=== PATIENT | female | born 1990 | race Caucasian/White ===

== ENCOUNTER 2022-10-08 11:00 | Outpatient (REF) | payer OTHER, SELFPAY ==
[2022-10-12 18:07] LABS: Age Gdln ACOG Testing Note (.); HPV Aptima Negative (Negative); IGP, Aptima HPV, rfx 16/18,45 Note (.)
== END 2022-10-08 11:01 | disposition home or self-care (01) ==
LOC: LAB 11:00
PROVIDERS: Visit Provider Physician Assistant
DX: Z01.419 Encounter for gynecological examination (general) (routine) without abnormal findings (principal)
CPT/HCPCS: 87624; G0145

== ENCOUNTER 2022-10-17 20:44 | Outpatient (REF) | payer OTHER, SELFPAY | END 2022-10-17 20:45 | disposition home or self-care (01) | LOC: LAB 20:44 | PROVIDERS: Visit Provider Obstetrics & Gynecology | DX: N94.9 Unspecified condition associated with female genital organs and menstrual cycle (principal) | CPT/HCPCS: 87070; 87150; 87186 ==

== ENCOUNTER 2022-12-14 07:56 | Outpatient (OUT) | payer OTHER, SELFPAY | END 2022-12-14 07:57 | disposition home or self-care (01) | LOC: PST 07:58 | PROVIDERS: Visit Provider Obstetrics & Gynecology | DX: Z01.818 Encounter for other preprocedural examination (principal); N80.9 Endometriosis, unspecified; R10.2 Pelvic and perineal pain ==

== ENCOUNTER 2022-12-28 07:32 | Day surgery (SDC) | payer OTHER, SELFPAY ==
[2022-12-14 08:29] VITALS: BP 101/68; PULSE 65; RESP 16; TEMP 36.4; O2SAT 98; BMI 30.3
[2022-12-28] VITALS (11 sets, daily range): BP systolic 92–115; BP diastolic 60–88; PULSE 55–97; RESP 10–20; TEMP 35.8–36.1; O2SAT 97–100; BMI 27.9
[2022-12-28 07:44] LABS: Basophils Percent Auto 0.5 % (0.2-2.0); Eosinophils Absolute Auto 0.1 10^3/uL (0.0-0.7); Eosinophils Percent Auto 1.1 % (0.9-7.0); Hematocrit 43.2 % (36.0-48.0); Hemoglobin 14.6 g/dL (12.0-16.0); Immature Granulocytes Abs Auto 0.04 10^3/uL (0.00-0.03); Immature Granulocytes Pct Auto 0.5 % (0.0-0.5); Lymphocytes Absolute Auto 2.5 10^3/uL (1.2-3.8); Mean Corpuscular HGB Conc 33.8 g/dL (29.9-35.2); Mean Corpuscular Hemoglobin 29.7 pg (26.7-34.0); Mean Corpuscular Volume 87.8 fL (81.0-99.0); Mean Platelet Volume 9.7 fL (9.5-13.5); Monocytes Absolute Auto 0.6 10^3/uL (0.3-0.8); Monocytes Percent Auto 6.9 % (1.7-12.0); Platelet Count 313 10^3/uL (150-450); Red Blood Count 4.92 10^6/uL (4.20-5.40); Red Cell Distribution Width 12.7 % (11.0-15.0); White Blood Count 8.2 10^3/uL (4.0-11.0)
[2022-12-28] MEDS: LACTATED RINGER'S SOLUTION 1,000 ML 50 ML IV (07:59)
[2022-12-28] MEDS: SCOPOLAMINE 1 EACH PATCH.TD.3 1 PATCH TD (08:10)
[2022-12-28] MEDS: LACTATED RINGER'S SOLUTION 1,000 ML 75 ML IV (09:30)
--- NOTE | 2022-12-28 09:41 | PM.ONB ---
Brief Operative Note Date of procedure: 12/28/22 Pre-op diagnosis: pelvic pain Post-op diagnosis: same as pre-op Procedure: NAME OF PROCEDURE: [diagnostic laparoscopy with lysis of omental adhesions to the anterior abdominal wall ] PROCEDURE: The patient was taken back to the Operating Room where she was placed in dorsal lithotomy position after given general anesthesia. The patient was prepped and draped in normal sterile fashion. A sponge stick was placed into the patient's vagina. Attention was turned to the patient's abdomen, where a small umbilical incision was made. The fascia was tented using Scarlett clamps and the fascia was entered sharply. Confirmation of intraabdominal placement of the 10 mm port was confirmed under direct visualization using a laparoscope. The patient's abdomen was then insufflated using CO2 gas with approximately 4 liters. A second port was placed left laterally, this was done under direct visualization with a 5 mm port. Survey of the patient's abdomen demonstrated normal liver and gallbladder. Survey of the patient's pelvic anatomy demonstrated normal appearing rt and lt ovary and absent uterus. extensive adhesions of bowel to the anterior abdominal wall and vaginal cuff was noted, along with lt ovary adhered to pelvic side wall. No endometrial implants could be noted, no evidence of any pelvic disease was seen, normal appearing pelvic cavity. All instruments were removed from the patient's abdomen. The patient's abdomen was deinsufflated of CO2 gas. The patient tolerated the procedure well. Sponge stick was removed from the patient's vagina. The patient's infraumbilical fascia was closed using #0 Vicryl on a GI needle. The patient's skin was closed laterally and infraumbilically using 4-0 Vicryl. The patient tolerated the procedure well. Sponge, lap and needle counts were correct x 2. The patient was taken to Recovery Room in stable condition.Clips from prior surgery noted adhered to bladder, the clips were grasped and gently removed Anesthesia: BRANDI Surgeon: Prem Cardenas Moving Picture Producer: Geeta Rosario Estimated blood loss (mL): 5 Pathology: none sent Condition: stable Disposition: PACU
[2022-12-28] MEDS: HYDROMORPHONE HCL 0.5 MG/0.5 ML SYRINGE 0.400000000000000022 MG IV ×2 (09:55→10:03)
--- NOTE | 2022-12-28 10:15 | PC.NURSE ---
Medicated for pain as ordered; peripad dry
== END 2022-12-28 11:45 | disposition home or self-care (01) ==
PROVIDERS: Visit Provider Obstetrics & Gynecology
PROC: (CPT 840; principal; 2022-12-28 08:55)
DX: N80.9 Endometriosis, unspecified (principal); R10.2 Pelvic and perineal pain; N73.6 Female pelvic peritoneal adhesions (postinfective); F17.210 Nicotine dependence, cigarettes, uncomplicated; Z90.710 Acquired absence of both cervix and uterus; Z98.51 Tubal ligation status; N89.8 Other specified noninflammatory disorders of vagina
CPT/HCPCS: 49320; 36415; 85025; J1094; J1170; J2704

== ENCOUNTER 2023-05-11 19:45 | Emergency (ER) | payer OTHER, SELFPAY ==
[2023-05-11 19:49] VITALS: BP 113/82; PULSE 94; RESP 18; TEMP 36.8; O2SAT 98; BMI 32.6
[2023-05-11] MEDS: DEXAMETHASONE SOD PHOS 10 MG/ML VIAL PO (20:04)
--- NOTE | 2023-05-11 20:04 | ED.DENTAL1 ---
HPI - Dental/Oral General Chief complaint: Dental/Oral Stated complaint: sore throat, ear pain Time Seen by Provider: 05/11/23 19:52 Source: patient Mode of arrival: walk-in Limitations: no limitations History of Present Illness HPI Narrative: 32-year-old female presents here with chief complaint of loss of voice cough congestion. Patient states she's had the symptoms for approximately 4-5 days. She was seen at another facility and diagnosed with pharyngitis. Patient does not appear toxic. She is afebrile. Posterior oropharynx shows no exudates and uvula is midline Related Data Home Medications Medication Instructions Recorded Confirmed albuterol sulfate 90 mcg/actuation 2 puff inhalation Q6H PRN 05/11/23 05/11/23 aerosol inhaler shortness of breath or wheezing hydroxyzine pamoate 25 mg capsule 25 mg PO Q8H 05/11/23 05/11/23 sertraline 50 mg tablet 50 mg PO Q24H 05/11/23 05/11/23 Previous Rx's Medication Instructions Recorded hydrocodone 5 mg-acetaminophen 325 1 tab PO Q4H PRN pain 4 days #16 12/28/22 mg tablet tabs ibuprofen 800 mg tablet 800 mg PO Q8H PRN pain 14 days #40 12/28/22 tabs Allergies Allergy/AdvReac Type Severity Reaction Status Date / Time Penicillins AdvReac Mild yeast Verified 05/11/23 19:54 infection Review of Systems ROS Narrative All Systems are negative except as noted/marked. PFSH PFSH Medical History (Updated 05/11/23 @ 20:20 by Elizabeth Tenorio) Anxiety ?F41.9 - Anxiety disorder, unspecified (ICD-10) COVID-19 ?U07.1 - COVID-19 (ICD-10) Migraine ?G43.909 - Migraine, unspecified, not intractable, without status migrainosus (ICD-10) Pelvic pain ?R10.2 - Pelvic and perineal pain (ICD-10) Postoperative nausea and vomiting ?R11.2 - Nausea with vomiting, unspecified (ICD-10) ?Z98.890 - Other specified postprocedural states (ICD-10) Delayed recovery from anesthesia Endometriosis ?N80.9 - Endometriosis, unspecified (ICD-10) Poor dentition ?K08.9 - Disorder of teeth and supporting structures, unspecified (ICD-10) Dental caries ?K02.9 - Dental caries, unspecified (ICD-10) Surgical History (Updated 12/14/22 @ 08:21 by Leny Cartwright NP) History of tubal ligation ?Z98.51 - Tubal ligation status (ICD-10) History of laparoscopy ?Z98.890 - Other specified postprocedural states (ICD-10) History of endometrial ablation ?Z98.890 - Other specified postprocedural states (ICD-10) History of hysterectomy ?Z90.710 - Acquired absence of both cervix and uterus (ICD-10) Family History (Updated 12/14/22 @ 08:21 by Leny Cartwright NP) Other Delayed recovery from anesthesia Family history of diabetes mellitus Family history of gastric cancer Family history of heart disease Family history of prostate cancer Family history of stroke Family history of throat cancer Social History (Updated 12/14/22 @ 08:17 by Leny Cartwright NP) Within the past year, how often did you have a drink containing alcohol: never Score interpretation: A score less than 3 is consistent with normal alcohol consumption. Smoking status: Current every day smoker What tobacco products do you use: cigarettes Cigarettes per day: 10 Years smoked: 11 Smoking pack-years: 5.50 Non-prescribed substance use: denies use Highest level of school completed/degree received: some college, no degree Exam Narrative Exam Narrative: Nurses note and vital signs reviewed and patient is not hypoxic. General: The patient appears well and in no apparent distress. Patient is resting comfortably on cart. Skin: Warm, dry, no pallor noted. There is no rash noted. Head: Normocephalic, atraumatic Eye: Normal conjunctiva, no drainage, EOMI. PERRL Ears, Nose, Mouth, and Throat: oral mucosa is moist. Nares patent. Mouth without vesicles. Ear canals patent. Tm's without Erythema Cardiovascular: Regular Rate and Rhythm Respiratory: Diminished expiratory wheezing posterior lower lobe, Patient is in no distress, no accessory muscle use, l Back: non-tender, no CVA tenderness bilaterally to percussion. GI: Normal bowel sounds, no tenderness to palpation, no masses appreciated. No rebound, guarding, or rigidity noted. Musculoskeletal: The patient has no evidence of calf tenderness, no pitting edema, symmetrical pulses noted bilaterally Neurological: A&O x4, normal speech Psychiatric: Cooperative Constitutional Vital Signs, click to edit/add: Last Vital Signs Temp 98.3 F 05/11/23 19:49 Pulse 90 05/11/23 20:12 Resp 16 05/11/23 20:12 BP 113/82 05/11/23 19:49 Pulse Ox 95 05/11/23 20:12 O2 Del Method Room Air 05/11/23 20:12 Course Vital Signs Vital signs: Vital Signs Temperature 98.3 F 05/11/23 19:49 Pulse Rate 94 H 05/11/23 19:49 Respiratory Rate 18 05/11/23 19:49 Blood Pressure 113/82 05/11/23 19:49 Pulse Oximetry 98 05/11/23 19:49 Oxygen Delivery Method Room Air 05/11/23 19:49 Temperature 98.3 F 05/11/23 19:49 Pulse Rate 90 05/11/23 20:12 Respiratory Rate 16 05/11/23 20:12 Blood Pressure 113/82 05/11/23 19:49 Pulse Oximetry 95 05/11/23 20:12 Oxygen Delivery Method Room Air 05/11/23 20:12 MDM - Dental/Oral MDM Narrative Medical decision making narrative: 32-year-old female presents her chief complaint of loss of voice. Rapid strep was obtained and negative. Patient was medicated with Decadron and DuoNeb breathing treatment she had some scattered expiratory wheezing. Lung sounds are now clear she does have an OB her inhaler home. Patient told to continue with saltwater gargles and throat lozenges for laryngitis. Patient agrees with plan of care. She's not toxic. Uvula midline no sign of peritonsillar abscess. Medical Records Attestation: I reviewed the patient's medical records. Lab Data Attestation: I reviewed the patient's lab results. Labs: Lab Results 05/11/23 Range/Units 19:51 Streptococcus Screen Negative Discharge Plan Discharge Chief Complaint: Dental/Oral Clinical Impression: Laryngitis Patient Disposition: Home, Self-Care Time of Disposition Decision: 20:18 Condition: Good Prescriptions / Home Meds: No Action ibuprofen 800 mg tablet 800 mg PO Q8H PRN (Reason: pain) 14 Days Qty: 40 0RF hydrocodone-acetaminophen 5-325 mg tablet 1 tab PO Q4H PRN (Reason: pain) 4 Days Qty: 16 0RF albuterol sulfate 90 mcg/actuation HFA aerosol inhaler 2 puff INHALATION Q6H PRN (Reason: shortness of breath or wheezing) hydroxyzine pamoate 25 mg capsule 25 mg PO Q8H sertraline 50 mg tablet 50 mg PO Q24H Instructions: Pharyngitis (ED) Additional Instructions: your exam is consistent with Laryngitis. This is a viral illness. Saltwater gargles throat lozenges to often help. No antibiotics are necessary at this time. Follow-up with primary care physician Stand Alone Forms: Portal Instructions Referrals: Physician,Non-Staff, [Primary Care Provider] - 1 week Discharge Date/Time: 05/11/23 20:28
[2023-05-11 20:09] VITALS: RESP 18; O2SAT 98
[2023-05-11] MEDS: IPRATROPIUM/ALBUTEROL SULFATE 3 ML AMPUL.NEB IH (20:09)
[2023-05-11 20:12] VITALS: PULSE 90; RESP 16; O2SAT 95
[2023-05-11 20:15] LABS: Internal Control Within Normal Limits; Strep A Antigen Screen Negative
== END 2023-05-11 20:28 | disposition home or self-care (01) ==
PROVIDERS: Physician Assistant; Emergency Provider Internal Medicine
DX: J04.0 Acute laryngitis (principal); F17.210 Nicotine dependence, cigarettes, uncomplicated; F41.9 Anxiety disorder, unspecified; Z86.16 Personal history of COVID-19; Z98.890 Other specified postprocedural states; Z79.899 Other long term (current) drug therapy; Z90.710 Acquired absence of both cervix and uterus
CPT/HCPCS: 87070; 87880; 94640; 99283; J1100

== ENCOUNTER 2024-02-03 20:40 | Outpatient (REF) | payer OTHER, SELFPAY ==
--- OUTSIDE RECORDS SUMMARY | 2024-02-03 20:43 | XMS_ITS | CCD ---
Author Organization [facility] Care Team Providers Care Boiler/Chiller Operator Name Role Phone FACUNDO, NADIYA Admitting Unavailable FACUNDO, NADIYA Attending Unavailable FACUNDO, NADIYA Consulting Unavailable FACUNDO, NADIYA Admitting Unavailable FACUNDO, NADIYA Attending Unavailable FACUNDO, NADIYA Consulting Unavailable JAMES BOSTON Attending Unavailable Valentino, Servando Attending Unavailab le Valentino, Servando Admitting Unavailab le NO PCP, NO PCP Primary Care Unavailable ROLAND HARRIS Attending Unavailable NO PCP, NO PCP Primary Care Unavailable LANDON, SHAYY Attending Unavailable LANDON, SHAYY Referring Unavailable NO PCP, NO PCP Primary Care Unavailable LANDON, SHAYY Attending Unavailable LANDON, SHAYY Referring Unavailable NO PCP, NO PCP Primary Care Unavailable NO PCP, NO PCP Primary Care Unavailable ROLAND HARRIS Attending Unavailable NO PCP, NO PCP Primary Care Unavailable ROLAND HARRIS Attending Unavailable NO PCP, NO PCP Primary Care Unavailable Problems Active Problems Problem Classification Problem Date Documented Date Episodic/Chronic Disorders of teeth and jaw (2 sources) Other specified disorders of teeth and supporting structures; Translations: [Toothache] Onset: 12-16-2023 Episodic Immunizations and screening for infectious disease (1 source) Encounter for screening for human papillomavirus (HPV); Translations: [ENC SCREENING HUMAN PAPILLOMAVIRUS] Onset: 12-30-2019 Episodic Other nervous system disorders (1 source) Other chronic pain; Translations: [Other chronic pain] Onset: 08-12-2023 Chronic Other screening for suspected conditions (not mental disorders or infectious disease) (4 sources) Encounter for screening for malignant neoplasm of cervix; Translations: [ENC SCREENING MALIG NEOPLASM CERV] Onset: 12-29-2019 Episodic Unclassified (1 source) Shoulder Pain, Numbness Onset: 08-12-2023 Unclassified (1 source) Earache Onset: 05-07-2023 Past or Other Problems Problem Classification Problem Date Documented Da te Episodic/Chronic Acute bronchitis (1 source) Acute bronchitis, unspecified; Translations: [Acute bronchitis, unspecified] Onset: 05-07-2023 Episodic Nonmalignant breast conditions (4 sources) Nipple discharge; Translations: [NIPPLE DISCHARGE] Onset: 06-11-2019 Episodic Other non-traumatic joint disorders (1 source) Pain in right shoulder; Translations: [Pain in right shoulder] Onset: 08-12-2023 Episodic Other non-traumatic joint disorders (1 source) Shoulder pain Onset: 08-12-2023 Episodic Other upper respiratory disease (1 source) Pain in throat Onset: 05-07-2023 Episodic Spondylosis; intervertebral disc disorders; other back problems (2 sources) Radiculopathy, cervical region; Translations: [Neck pain] Onset: 06-05-2023 Episodic Results Test Name Value Interpretation Reference Range Facil ity SARS/FLU A+B/RSV by NAAT/Mol ecularon 05-07-2023 SARS/FLU A+B/RSV by NAAT/Molecular FLU A PCR Negative (qualifier value) FLU B PCR Negative (qualifier value) RSV by PCR Negative (qualifier value) SARS CoV 2 Not detected (qualifier value) NOTE The Xpert Xpress SARS-CoV-2/Flu/RSV Plus test is a rapid, multiplexed real-time RT-PCR test intended for the simultaneous qualitative detection and differentiation of SARS-CoV-2, influenza A, influenza B and respiratory syncytial virus (RSV) viral RNA from individuals suspected of respiratory viral infection consistent with COVID-19 by their healthcare provider. This test has not been validated in asymptomatic patients. The Xpert Xpress SARS-CoV-2 test is intended for use by qualified and trained operators who are performing tests using either [employer] or [employer] systems and is limited to laboratories that meet the CLIA requirements to perform high and moderate complexity tests. The Xpert Xpress SARS-CoV-2/Flu/RSV Plus is only for use under the Food and Drug Administration's Emergency Use Authorization. Results are for the simultaneous detection and differentiation of SARS-CoV-2, influenza A, influenza B and RSV nucleic acids in clinical specimens. SARS-CoV-2, influenza A, influenza B and RSV RNA identified by this test are generally detectable in upper respiratory samples during the acute phase of infection. Positive results are indicative of the presence of the identified virus, but do not rule out bacterial infection or co-infection with other pathogens not detected by this test. Clinical correlation with patient history and other diagnostic information is necessary to determine patient infection status. The agent detected may not be the definite cause of disease. Negative results do not preclude SARS-CoV-2, influenza A, influenza B and RSV infection and should not be used as the sole basis for treatment or other patient management decisions. Negative results must be combined with clinical observations, patient history and epidemiological information. An Invalid result may occur with specimen-associated inhibition unable to be resolved with specimen repeat. Fact Sheet for Healthcare Providers: https://www.fda.gov/me nallely/206018/download Fact Sheet for Patients: https://www.fda.gov/tn nallely/136552/download Normal [facility] Comment on above: Performed By: #### C OVFLR #### [facility] ([id number]) [address] [place] [address] PAP ACOG PANEL 2: 21 to 29on 01-01-2020 Age Gdln ACOG Testing 21- [facility] Comment on above: Performed By: #### [id number] #### [facility] [address] [place] [address] Maisha Wild DIAGNOSIS: Comment [facility] Comment on above: Result Comment: NEGA TIVE FOR INTRAEPITHELIAL LESION OR MALIGNANCY. Performed By: #### [id number] #### [facility] [address] [place] [address] Maisha Wild Methodology: Comment [facility] Comment on above: Result Comment: This liquid based SurePath(R) pap test was screened with the assistance of an image guided system. Performed By: #### [id number] #### [facility] [address] [place] [address] Maisha Wild Note: Comment [facility] Comment on above: Result Comment: The Pap smear is a screening test designed to aid in the detection of premalignant and malignant conditions of the uterine cervix. It is not a diagnostic procedure and should not be used as the sole means of detecting cervical cancer. Both false-positive and false-negative reports do occur. . Performed By: #### [id number] #### [facility] [address] [place] [address] Maisha Torri Performed by: Comment Normal [facility] Comment on above: Result Comment: Kiana Parker, [place] (ASCP) Performed By: #### [id number] #### [facility] [address] [place] [address] Maisha Torri Reflex Criteria: Comment Normal [facility] Comment on above: Result Comment: The HPV DNA reflex criteria were not met with this specimen result therefore, no HPV testing was performed. . Performed By: #### [id number] #### [facility] [address] [place] [address] Maisha Torri Specimen adequacy: Comment Normal [facility] Comment on above: Result Comment: Sati sfactory for evaluation. No endocervical component is identified. Performed By: #### [id number] #### [facility] [address] [place] [address] Maisha Torri . . Normal [facility] Comment on above: Performed By: #### [id number] #### [facility] [address] [place] [address] Maisha Torri CULTURE WOUNDon 06-11-2019 CULTURE WOUND Culture Observations : Normal skin kenia. Culture Observations: No growth of anaerobes at 72 hours. Normal [facility] Comment on above: Performed By: #### W OUNDCX #### [facility] [address] [place] [address] Maisha Torri GRAM STAINon 06-11-2019 Microscopic observation Gram stain Nom (Unsp spec) LEFT NIPPLE [facility] Comment on above: Performed By: #### G STAIN #### [facility] [address] [place] [address] Maisha Torri Microscopic observation Gram stain Nom (Unsp spec) [facility] Comment on above: Performed By: #### G STAIN #### [facility] [address], [place] [address] Maisha Wild Microscopic observation Gram stain Nom (Unsp spec) NO ORGANISMS OBSERVED Normal [facility] Comment on above: Performed By: #### G STAIN #### [facility] [address] [place], [place] [address] Maisha Wild WBC (Bld) [#/Vol] NONE SEEN Normal [facility] Comment on above: Performed By: #### G STAIN #### [facility] [address] [place], [place] [address] Maisha Wild Encounters Encounter Date Encounter Type Care Provider Facility Start: 12-16-2023 End: 12-16-2023 Emergency department patient visit NO PCP NO PCP [facility] Start: 10-13-2023 End: 10-14-2023 Emergency department patient visit [facility] Start: 10-13-2023 End: 10-14-2023 Emergency department patient visit [facility] Start: 08-12-2023 End: 08-12-2023 Emergency department patient visit NO PCP NO PCP [facility] Start: 07-01-2023 End: 07-01-2023 ambulatory JAMES BOSTON Not Available Start: 06-05-2023 End: 06-05-2023 Emergency department patient visit NO PCP NO PCP [facility] Start: 05-31-2023 ambulatory Servando Gilman acility:[facility] Start: 05-07-2023 End: 05-07-2023 Emergency department patient visit NO PCP NO PCP [facility] Start: 12-29-2019 End: 12-29-2019 Patient encounter procedure NADIYA FACUNDO Facility:[facility] Start: 06-11-2019 End: 06-11-2019 Patient encounter procedure NADIYA FACUNDO Facility:[facility] Payers Date Payer Category Payer Self-pay 1990 Unknown [id number] 2.16.84 [id number] 1990 Unknown [id number] 2.16.84 [id number] 1990 Unknown [id number] 2.16.84 [id number] 1990 Unknown [id number] 2.16.8 [id number] 1990 Unknown [id number] 2.16.8 [id number] 1990 Unknown [id number] 2.16.8 [id number] 1990 Unknown [id number] 2.16.8 [id number] 1990 Unknown [id number] 2.16.8 [id number] 1990 Unknown [id number] 2.16.8 [id number] 1990 Unknown [id number] 2.16.84 [id number] 1959 Unknown [id number] Clinical Note 10-13-2023 Note Date & Type Note Facility 10-13-2023 Note XR SHOULDER RT MIN 2 VWS Procedure: Right shoulder radiographs performed Number of views:4 History:Shoulder pain Comparison:None Findings: There is no fracture, dislocation, or destructive lesion. Joint space is well preserved. Impression: 1. No acute findings. Finalized by Jesus Galindo MD on 10/13/2023 2:38 PM [facility] Summary Purpose Family History No Family History Records FoundNo Family History Records FoundNo Family History Records FoundNo Family History Records Found Advance Directives No Advanced Directives Records FoundNo Advanced Directives Records FoundNo Advanced Directives Records FoundNo Advanced Directives Records Found Additional Source Comments INFORMATION SOURCE (unrecogn ized section and content) DATE CREATED AUTHOR 01/01/2020 [facility] DATE CREATED AUTHOR AUTHOR'S ORGANIZ ATION 07/01/2023 [facility] EPIC DATE CREATED AUTHOR AUTHOR'S ORGANIZ ATION 07/30/2023 [facility] DATE CREATED AUTHOR AUTHOR'S PAT JOHN 12/17/2023 [facility] FOR RECORDS PERTAINING TO PATIENTS WHO ARE OR HAVE BEEN ENROLLED IN A CHEMICAL DEPENDENCY/SUBSTANCEABUSE PROGRAM, SOME INFORMATION MAY BE OMITTED. This clinical summary was aggregated from multiple sources. Caution should be exercised in using it in the provision of clinical care. This summary normalizes information from multiple sources, and as a consequence, information in this document may materially change the coding, format and clinical context of patient data. In addition, data may be omitted in some cases. CLINICAL DECISIONS SHOULD BE BASED ON THE PRIMARY CLINICAL RECORDS. [facility] [employer] [facility]. provides no warranty or guarantee of the accuracy or completeness of information in this document.
== END 2024-02-03 20:41 | disposition home or self-care (01) ==
LOC: LAB 20:40
PROVIDERS: Visit Provider Physician Assistant
DX: Z01.419 Encounter for gynecological examination (general) (routine) without abnormal findings (principal)
CPT/HCPCS: 87624; 88175

== ENCOUNTER 2024-12-28 21:15 | Outpatient (REF) | payer OTHER, SELFPAY ==
--- OUTSIDE RECORDS SUMMARY | 2024-12-28 21:20 | XMS_ITS | CCD ---
Author Organization [facility] Care Team Providers Care Paper Hanger Name Role Phone EDWIN, NADIYA Admitting Unavailable EDWIN, NADIYA Attending Unavailable EDWIN, NADIYA Consulting Unavailable EDWIN, NADIYA Admitting Unavailable EDWIN, NADIYA Attending Unavailable EDWIN, NADIYA Consulting Unavailable Elizabeth Bates Unavailable Servando Avelar Attending Unavailab le Servando Avelar Admitting Unavailab le REDDY, JM Referring Unavailable REDDY, JM Primary Care Unavailable Reddy TRAVERSE ROD ASSEMBLER-CAR DELIVERER, Jm Primary Care Provider Elizabeth Bates Unavailable Edwin DO, Nadiya Unavailable Reddy TRAVERSE ROD ASSEMBLER-CAR DELIVERER, Jm Primary Care Provider REDDY, JM Attending Unavailable REDDY, JM Primary Care Unavailable REDDY, JM Attending Unavailable REDDY, JM Referring Unavailable REDDY, JM Primary Care Unavailable REDDY, JM Attending Unavailable REDDY, JM Referring Unavailable REDDY, JM Primary Care Unavailable REDDY, JM Attending Unavailable REDDY, JM Referring Unavailable REDDY, JM Primary Care Unavailable EDWIN, NADIYA Attending Unavailable EDWIN, NADIYA Attending Unavailable ELIZABETH BOSTON Attending Unavailable ELIZABETH BOSTON Attending Unavailable EDWIN, NADIYA Attending Unavailable NO PCP, NO PCP Primary Care Unavailable ROLAND HARRIS Attending Unavailable REDDY, JM Primary Care Unavailable REDDY, JM Primary Care Unavailable REDDY, JM Referring Unavailable REDDY, JM Primary Care Unavailable EDWIN, NADIYA R Referring Unavailable [facility] Primary Care Unavailable EDWIN, NADIYA R Referring Unavailable [facility] Primary Care Unavailable [facility], JM Referring Unavailable [facility] Primary Care Unavailable REDDY, JM Referring Unavailable [facility] Primary Care Unavailable ELIZABETH BOSTON Referring Unavailable [facility] Primary Care Unavailable REDDY, JM Referring Unavailable [facility] Primary Care Unavailable Allergies Allergy Classification Reported Allergen(s) Allergy Type Date of Onset Reaction(s) Facility (17 sources) Penicillin G Drug Allergy 10-08-2022 Other [facility] Work Phone: Medications Current Medications Medication Drug Class(es) Dates Sig (Normalized) Sig (Original) [id number] actuat albuterol 0.09 mg/actuat metered dose inhaler (20 sources) beta2-Adrenergic Agonist Start: 10-07-2024 End: 12-21-2024 take 2 puff(s) by inhalation every six hours as needed for wheezing albuterol (PROVENTIL HFA;VENTOLIN HFA) 90 mcg/actuation inhaler Indications: History of COVID-19 , Bronchitis Inhale 2 puffs every 6 (six) hours as needed for wheezing or shortness of breath. 18 g 2 12/21/2024 Active Start: 05-07-2023 take 2 puff(s) by mo uth every six hours as needed for wheezing albuterol HFA 90 mcg/act inhaler INHALE 2 PUFFS BY MOUTH INTO THE LUNGS EVERY 6 HOURS NEEDED FOR WHEEZING 05/07/2023 Active Start: 05-07-2023 End: 10-07-2024 take 2 puff(s) by inhalation every six hours as needed for wheezing albuterol (PROVENTIL HFA;VENTOLIN HFA) 90 mcg/actuation inhaler Inhale 2 puffs every 6 (six) hours as needed for wheezing. 05/07/2023 10/07/2024 Discontinued (Reorder) amoxicillin 875 mg / clavulanate 125 mg oral tablet (4 sources) Penicillin-class Antibacterial Start: 10-26-2024 take 1 tablet by mouth every twelve hours amoxicillin-clavulanate (Augmentin) 875-125 MG tablet TAKE 1 TABLET BY MOUTH EVERY 12 HOURS UNTIL GONE 10/26/2024 Active Start: 06-17-2024 End: 06-27-2024 take 1 tablet by mouth once in the morning amoxicillin-pot clavulanate (AUGMENTIN) 875-125 mg per tablet Take 1 tablet by mouth in the morning and 1 tablet before bedtime. Do all this for 10 days. 20 tablet 06/17/2024 06/27/2024 Active celecoxib 100 mg oral capsule (19 sources) Nonsteroidal Anti-inflammatory Drug Start: 07-06-2024 End: 10-07-2024 take 1 capsule by mouth in the morning celecoxib (CeleBREX) 100 MG capsule Take 100 mg by mouth in the morning and 100 mg in the evening. 07/06/2024 Active cyclobenzaprine hydrochloride 10 mg oral tablet (20 sources) Muscle Relaxant Start: 10-07-2024 take 1 tablet by mouth once daily as needed for muscle spasms cyclobenzaprine (FLEXERIL) 10 mg tablet Indications: Myalgia Take 1 tablet (10 mg total) by mouth nightly as needed for muscle spasms. 30 tablet 2 10/07/2024 Active Start: 07-06-2024 End: 10-07-2024 cyclobenzaprine (Flexeril) 5 MG tablet 07/06/2024 Active Start: 06-05-2023 take 1 tablet by bernardo th twice daily as needed cyclobenzaprine (Flexeril) 10 MG tablet Take 10 mg by mouth 2 (two) times a day as needed 06/05/2023 Active doxycycline hyclate 100 mg oral capsule (2 sources) Tetracycline-class Drug Start: 10-28-2024 End: 11-27-2024 doxycycline (Vibramycin) 100 MG capsule Indications: Hormone disorder , Dyspareunia in female Take 1 capsule (100 mg) by mouth in the morning and 1 capsule (100 mg) before bedtime. Take with at least 8 ounces (large glass) of water, do not lie down for 30 minutes after. 60 capsule 10/28/2024 11/27/2024 Active estradiol 1 mg oral tablet (20 sources) Estrogen Start: 10-28-2024 End: 10-28-2025 take 1 tablet by mouth once daily estradiol (Estrace) 1 MG tablet Indications: Hormone disorder Take 1 tablet (1 mg) by mouth Daily Take 1 tablet by mouth for 30 days 30 tablet 11 10/28/2024 10/28/2025 Active Start: 06-09-2024 End: 06-09-2025 take 1 tablet by mouth in the morning estradioL (ESTRACE) 0.5 mg tablet Take 1 tablet (0.5 mg total) by mouth in the morning. 06/09/2024 06/09/2025 Active fluticasone propionate 0.05 mg/actuat metered dose nasal spray (11 sources) Corticosteroid Start: 06-17-2024 take 1 spray(s) nasal route in the morning fluticasone propionate (FLONASE) 50 mcg/actuation nasal spray Administer 1 spray into each nostril in the morning. 16 mL 2 06/17/2024 Active gabapentin 100 mg oral capsule (20 sources) Anti-epileptic Agent Start: 07-31-2024 gabapentin (Neurontin) 100 MG capsule Take 100 mg by mouth in the morning and 100 mg at noon and 100 mg in the evening. 07/31/2024 Active Start: 07-06-2024 End: 10-07-2024 take 1 capsule by mouth three times daily gabapentin (NEURONTIN) 100 mg capsule Indications: Chronic midline low back pain with right-sided sciatica TAKE 1 CAPSULE(100 MG) BY MOUTH THREE TIMES DAILY 90 capsule 07/31/2024 10/07/2024 Discontinued (Reorder) hydrOXYzine hydrochloride 25 mg oral tablet (20 sources) Antihistamine Start: 10-07-2024 take 1 tablet by mouth every six hours as needed for anxiety and anxiety and anxiety hydrOXYzine (ATARAX) 25 mg tablet Indications: Anxiety Take 1 tablet (25 mg total) by mouth every 6 (six) hours as needed for anxiety. 120 tablet 2 10/07/2024 Active Start: 04-30-2023 End: 08-10-2024 take 1 capsule by mouth three times daily as needed for anxiety hydrOXYzine pamoate (Vistaril) 25 MG capsule Take 25 mg by mouth 3 (three) times a day as needed for anxiety 04/30/2023 08/10/2024 Discontinued End: 10-07-2024 take 1 tablet by mouth three times daily as needed hydrOXYzine (ATARAX) 25 mg tablet Take 1 tablet (25 mg total) by mouth 3 (three) times a day as needed for itching. 10/07/2024 Discontinued (Reorder) ibuprofen 800 mg oral tablet (4 sources) Nonsteroidal Anti-inflammatory Drug Start: 11-21-2022 End: 07-06-2024 take 1 tablet by mouth every six hours as needed for pain ibuprofen (MOTRIN) 800 mg tablet Take 1 tablet (800 mg total) by mouth every 6 (six) hours as needed for pain. 30 tablet 11/21/2022 07/06/2024 Discontinued (Alternate therapy) meloxicam 15 mg oral tablet (4 sources) Nonsteroidal Anti-inflammatory Drug Start: 05-08-2024 End: 07-06-2024 take 1 tablet by mouth in the morning meloxicam (MOBIC) 15 mg tablet Take 1 tablet (15 mg total) by mouth in the morning. 30 tablet 2 05/08/2024 07/06/2024 Discontinued (Alternate therapy) 24 hr metFORMIN hydrochloride 500 mg extended release oral tablet (12 sources) Biguanide Start: 09-29-2024 End: 10-29-2024 take 1 tablet by mouth once daily at breakfast metFORMIN XR (GLUCOPHAGE XR) 500 mg 24 hr tablet Take 1 tablet (500 mg total) by mouth daily with breakfast. 09/29/2024 10/29/2024 Active Start: 08-10-2024 End: 10-29-2024 take 1 tablet by mouth every twenty-four hours at mealtime metFORMIN XR (Glucophage-XR) 500 MG 24 hr tablet Indications: PCOS (polycystic ovarian syndrome) Take 1 tablet (500 mg) by mouth in the evening. Take with meals Do not crush, chew, or split. 30 tablet 11 09/29/2024 Active metroNIDAZOLE 500 mg oral tablet (1 source) Nitroimidazole Antimicrobial Start: 06-11-2024 End: 06-18-2024 take 1 tablet by mouth in the morning, then take 1 tablet by mouth at bedtime metroNIDAZOLE (FLAGYL) 500 mg tablet Take 1 tablet (500 mg total) by mouth in the morning and 1 tablet (500 mg total) before bedtime. 06/11/2024 06/18/2024 Active pantoprazole 40 mg delayed release oral tablet (20 sources) Proton Pump Inhibitor Start: 05-08-2024 End: 09-07-2024 take 1 tablet by mouth in the morning pantoprazole (ProtoNix) 40 MG EC tablet Take 40 mg by mouth in the morning. 09/07/2024 Active pseudoephedrine hydrochloride 30 mg oral tablet (11 sources) alpha-Adrenergic Agonist Start: 06-17-2024 take 1 tablet by mouth every six hours as needed for congestion pseudoephedrine (SUDAFED) 30 mg tablet Take 1 tablet (30 mg total) by mouth every 6 (six) hours as needed for congestion. 24 tablet 2 06/17/2024 Active Completed/Discontinued Medications Medication Drug Class(es) Dates Sig (Normalized) Sig (Original) amitriptyline hydrochloride 50 mg oral tablet (12 sources) Tricyclic Antidepressant Start: 07-06-2024 End: 10-07-2024 take 1 tablet by mouth once daily amitriptyline (ELAVIL) 50 mg tablet Take 1 tablet (50 mg total) by mouth nightly. 30 tablet 2 07/06/2024 10/07/2024 Discontinued (Therapy completed) Start: 05-08-2024 End: 07-06-2024 take 1 tablet by mouth once daily amitriptyline (ELAVIL) 25 mg tablet Take 1 tablet (25 mg total) by mouth nightly. 30 tablet 2 05/08/2024 07/06/2024 Discontinued (Dose adjustment) azithromycin 250 mg oral tablet (1 source) Macrolide Antimicrobial Start: 06-13-2024 End: 06-17-2024 azithromycin (ZITHROMAX Z-LOKESH) 250 mg tablet Take 2 tablets the first day then 1 tablet every day for 4 days. 6 tablet 06/13/2024 06/17/2024 Discontinued (Therapy completed) predniSONE 10 mg oral tablet (1 source) Start: 06-13-2024 End: 06-17-2024 take 4 tablets by mouth in the morning predniSONE (DELTASONE) 10 mg tablet Take 4 tablets (40 mg total) by mouth in the morning for 5 days. 20 tablet 06/13/2024 06/17/2024 Discontinued (Therapy completed) sertraline 50 mg oral tablet (10 sources) Serotonin Reuptake Inhibitor End: 08-10-2024 take 1 tablet by mouth in the morning sertraline (Zoloft) 50 MG tablet Take 50 mg by mouth in the morning. 08/10/2024 Discontinued traZODone hydrochloride 50 mg oral tablet (10 sources) Serotonin Reuptake Inhibitor End: 08-10-2024 take 1 tablet by mouth at bedtime traZODone (Desyrel) 50 MG tablet Take 50 mg by mouth at bedtime 08/10/2024 Discontinued Problems Active Problems Problem Classification Problem Date Documented Date Episodic/Chronic Administrative/social admission (2 sources) Patient encounter status; Translations: [Person consulting for explanation of examination or test findings] 10-28-2024 Episodic Anxiety disorders (3 sources) Mixed anxiety and depressive disorder; Translations: [Anxiety disorder, unspecified] Onset: 10-07-2024 06-17-2024 Chronic Chronic obstructive pulmonary disease and bronchiectasis (3 sources) Bronchitis, not specified as acute or chronic; Translations: [Bronchitis] Onset: 10-07-2024 10-07-2024 Episodic Headache; including migraine (11 sources) Migraine with aura; Translations: [Migraine with aura, not intractable, without status migrainosus] Onset: 07-06-2024 07-06-2024 Chronic Immunizations and screening for infectious disease (1 source) Encounter for screening for human papillomavirus (HPV); Translations: [ENC SCREENING HUMAN PAPILLOMAVIRUS] Onset: 12-30-2019 Episodic Malaise and fatigue (2 sources) Chronic fatigue, unspecified; Translations: [Chronic fatigue, unspecified] Onset: 05-08-2024 Chronic Other connective tissue disease (2 sources) Muscle pain; Translations: [Myalgia, unspecified site] 07-06-2024 Episodic Other connective tissue disease (1 source) Muscle weakness (generalized); Translations: [Muscle weakness (generalized)] Onset: 10-07-2024 Episodic Other connective tissue disease (2 sources) Muscle weakness; Translations: [Muscle weakness (generalized)] 10-11-2024 Episodic Other endocrine disorders (15 sources) Polycystic ovary syndrome; Translations: [Polycystic ovarian syndrome] Onset: 08-10-2024 06-09-2024 Chronic Other endocrine disorders (1 source) Polycystic ovarian syndrome; Translations: [Polycystic ovarian syndrome] Onset: 07-14-2024 Chronic Other endocrine disorders (4 sources) Disorder of endocrine system; Translations: [Endocrine disorder, unspecified] 06-09-2024 Episodic Other female genital disorders (2 sources) Pain in female genitalia on intercourse; Translations: [Unspecified dyspareunia] 10-28-2024 Chronic Other infections; including parasitic (2 sources) Personal history of other infectious and parasitic diseases; Translations: [History of COVID-19] 10-07-2024 Episodic Other nervous system disorders (3 sources) Other chronic pain; Translations: [Other chronic pain] Onset: 05-08-2024 Chronic Other nervous system disorders (1 source) Other symptoms and signs involving cognitive functions and awareness; Translations: [Other symptoms and signs involving cognitive functions and awareness] Onset: 10-07-2024 Episodic Other nervous system disorders (2 sources) Impaired cognition; Translations: [Other symptoms and signs involving cognitive functions and awareness] 10-11-2024 Episodic Other non-traumatic joint disorders (2 sources) Pain in right shoulder; Translations: [Pain in right shoulder] Onset: 10-07-2024 Episodic Other non-traumatic joint disorders (1 source) Chronic pain of right upper limb; Translations: [Pain in right shoulder] 10-07-2024 Episodic Sexually transmitted infections (not HIV or hepatitis) (2 sources) Sexually transmitted infectious disease; Translations: [Unspecified sexually transmitted disease] 06-09-2024 Episodic Unclassified (1 source) Personal history of COVID-19; Translations: [Personal history of COVID-19] Onset: 10-07-2024 Unclassified (1 source) wellness Onset: 07-06-2024 Unclassified (1 source) Establish Care Onset: 05-08-2024 Unclassified (2 sources) Chronic pain of right upper limb 10-11-2024 Unclassified (1 source) Earache Onset: 06-05-2024 Unclassified (1 source) Generalized Body Aches Onset: 06-05-2024 Past or Other Problems Problem Classification Problem Date Documented Da te Episodic/Chronic Abdominal pain (16 sources) Pain in female pelvis; Translations: [Pelvic and perineal pain] Onset: 07-14-2024 06-09-2024 Episodic Disorders of teeth and jaw (3 sources) Other specified disorders of teeth and supporting structures; Translations: [Toothache] Onset: 12-16-2023 Episodic Fever of unknown origin (1 source) Fever Onset: 06-05-2024 Episodic Mood disorders (12 sources) Mood disorders Onset: 05-08-2024 Resolved: 10-07-2024 05-08-2024 Nonmalignant breast conditions (8 sources) Nipple discharge; Translations: [Discharge from nipple] Onset: 06-11-2019 07-06-2024 Episodic Other connective tissue disease (2 sources) Other specified soft tissue disorders; Translations: [Other specified soft tissue disorders] Onset: 05-08-2024 Episodic Other connective tissue disease (1 source) Myalgia, unspecified site; Translations: [Myalgia, unspecified site] Onset: 07-06-2024 Episodic Other non-traumatic joint disorders (2 sources) Pain in unspecified joint; Translations: [Pain in unspecified joint] Onset: 05-08-2024 Episodic Other non-traumatic joint disorders (2 sources) Effusion, unspecified joint; Translations: [Effusion, unspecified joint] Onset: 05-08-2024 Episodic Other screening for suspected conditions (not mental disorders or infectious disease) (6 sources) Encounter for screening for malignant neoplasm of cervix; Translations: [Patient encounter status] Onset: 12-29-2019 07-06-2024 Episodic Other upper respiratory disease (1 source) Pain in throat Onset: 06-05-2024 Episodic Other upper respiratory infections (4 sources) Acute sinusitis; Translations: [Acute sinusitis, unspecified] Onset: 06-05-2024 06-17-2024 Episodic Spondylosis; intervertebral disc disorders; other back problems (19 sources) Chronic low back pain; Translations: [Lumbago with sciatica, unspecified side] Onset: 05-16-2024 05-16-2024 Episodic Results Test Name Value Interpretation Reference Range Facility CBC WITH AUTO DIFFERENTIALon 10-07-2024 BASOPHILS ABSOLUTE COUNT (10*3/UL) BY AUTOMATED COUNT 0.0 10*3/uL Normal 0.0-0.2 [facility] Comment on above: Performed By: #### C BCA ####[facility], [place] [address] VIR BASOPHILS RELATIVE PERCENT BY AUTOMATED COUNT 0.4 % Normal [facility] Comment on above: Performed By: #### C BCA ####[facility])[address], [place] [address] VIR CELLAVISION DIFFERENTIAL TYPE AUTOMATED DIFFERENTIAL Normal [facility] Comment on above: Performed By: #### C BCA ####[facility])[address], [place] [address] VIR Eosinophils (Bld) [#/Vol] 0.0 10*3/uL Normal 0.0-0.4 [facility] Comment on above: Performed By: #### C BCA ####[facility], [place] [address] VIR EOSINOPHILS RELATIVE PERCENT BY AUTOMATED COUNT 0.3 % Normal [facility] Comment on above: Performed By: #### C BCA ####[facility], [place] [address] VIR Erythrocyte distribution width (RBC) [Ratio] 13.4 % Normal 11.5-15 [facility] Comment on above: Performed By: #### C BCA ####[facility], [place] [address] VIR Hematocrit (Bld) [Volume fraction] 40.7 % Normal 35-47 [facility] Comment on above: Performed By: #### C BCA ####[facility], [place] [address] VIR Hemoglobin (Bld) [Mass/Vol] 13.9 g/dL Normal 11.7-15.5 [facility] Comment on above: Performed By: #### C BCA ####[facility], [place] [address] VIR LYMPHOCYTES ABSOLUTE COUNT (10*3/UL) BY AUTOMATED COUNT 1.8 10*3/uL Normal 1.0-3.5 [facility] Comment on above: Performed By: #### C BCA ####[facility])[address], [place] [address] VIR LYMPHOCYTES RELATIVE PERCENT BY AUTOMATED COUNT 23.0 % Normal [facility] Comment on above: Performed By: #### C BCA ####[facility], [place] [address] VIR MCH (RBC) [Entitic mass] 29.1 pg Normal 27-34 [facility] Comment on above: Performed By: #### C BCA ####[facility], [place] [address] VIR MCHC (RBC) [Mass/Vol] 34.1 g/dL Normal 32-36 [facility] Comment on above: Performed By: #### C BCA ####[facility], [place] [address] VIR MCV (RBC) [Entitic vol] 85 fL Normal 80-100 [facility] Comment on above: Performed By: #### C BCA ####[facility], [place] [address] VIR MONOCYTES ABSOLUTE COUNT (10*3/UL) BY AUTOMATED COUNT 0.4 10*3/uL Normal 0.0-0.9 [facility] Comment on above: Performed By: #### C BCA ####[facility])[address], [place] [address] VIR MONOCYTES RELATIVE PERCENT BY AUTOMATED COUNT 5.8 % Normal [facility] Comment on above: Performed By: #### C BCA ####[facility], [place] [address] VIR NEUTROPHILS ABSOLUTE COUNT BY AUTOMATED COUNT 5.4 10*3/uL Normal 1.5-6.6 [facility] Comment on above: Performed By: #### C BCA ####[facility], [place] [address] VIR NEUTROPHILS RELATIVE PERCENT BY AUTOMATED COUNT 70.5 % Normal [facility] Comment on above: Performed By: #### C BCA ####[facility])[address], [place] [address] VIR Platelet mean volume (Bld) [Entitic vol] 8.5 fL Normal 7-12 [facility] Comment on above: Performed By: #### C BCA ####[facility])[address], [place] [address] VIR Platelets (Bld) [#/Vol] 307 10*3/uL Normal 150-450 [facility] Comment on above: Performed By: #### C BCA ####[facility])[address], [place] [address] VIR RBC COUNT 4.78 X10E12/L Normal 3.8-5.2 [facility] Comment on above: Performed By: #### C BCA ####[facility], [place] [address] VIR WBC (Bld) [#/Vol] 7.7 10*3/uL Normal 4-11 [facility] Comment on above: Performed By: #### C BCA ####[facility], [place] [address] VIR DEHYDROEPIANDROSTERONE, SERU [facility] 10-07-2024 DEHYDROEPIANDROSTERO NE, S 6.3 ng/mL Normal <10 [facility] Comment on above: Result Comment: ADDITIONAL INFORMATION This test was developed and its performance characteristics determined by [facility] in a manner consistent with CLIA requirements. This test has not been cleared or approved by the U.S. Food and Drug Administration. Test Performed by: [facility] [address] [place] [address] Grades 1 Through 6 Teacher: Sudheer Galeana Ph.D.; CLIA# [id number] Performed By: #### D HPDR ####[facility] ([facility])[address] [place] [address] VIR DHEA-SULFATEon 10-07-2024 DHEA S 385 ug/dL High 23-266 [facility] Comment on above: Performed By: #### 6 556-5 #### [facility] ([id number]) [address] [place] [address] FOLLICLE STIMULATING HORMONE on 10-07-2024 FOLLICLE STIM HORMONE 2.6 mIU/mL Normal [facility] Comment on above: Order Comment: CHET L FEMALE:Luteal 1.8-5.1 mIU/mLFollicular 3.8-8.8 mIU/mLMid Cycle 4.5-22.5 mIU/mLPost Cele 16.7-113.6 mIU/mL Performed By: #### 6 556-5 #### [facility] ([id number]) [address] [place] [address] HCG-BETA, SERUMon 10-07-2024 SERUM B HCG,3RD I.S. <^5 Normal [facility] Comment on above: Order Comment: WEEKS (SINCE LMP) MIU/mL3 WEEKS 5 - 504 WEEKS 5 - 4265 WEEKS 18 - 7,3406 WEEKS 1,080 - 56,5007-8 WEEKS 7,650 - 229,0009-12 WEEKS 25,700 - 288,[id number] WEEKS 13,300 - 254,81658-89 WEEKS 4,060 - 165,58707-52 WEEKS 3,640 - 117,000MALES AND NON- FEMALES - <5 MIU/mLThis test has been FDA approved for use inpregnancy only. Elevated levels are notnecessarily diagnostic for trophoblasticor nontrophoblastic neoplasms. ---- Performed By: #### 6 556-5 #### [facility] ([id number]) [address] [place] [address] HEMOGLOBIN A1Con 10-07-2024 Glucose [Mass/Vol] 114 mg/dL Normal [facility] Comment on above: Performed By: #### 6 556-5 #### [facility] ([id number]) [address] [place] [address] HbA1c (Bld) [Mass fraction] 5.6 % Normal 4.4-5.6 [facility] Comment on above: Result Comment: ADA Guidelines Result HgbA1c Normal : less than 5.7 % Prediabetes : 5.7 % to 6.4 % Diabetes : > 6.4 % Use with caution in patients with abnormal hemoglobin variants as the half-life of red blood cells and in vivo glycation rates are affected. Performed By: #### 6 556-5 #### [facility] ([id number]) [address] [place] [address] 10406 LUTEINIZING HORMONEon 2024 LUTEINIZING HORMONE 2.9 mIU/mL Normal [facility] Comment on above: Order Comment: CHET L FEMALEFollicular 2.1-10.9 mIU/mLMid Cycle 19.2-103 mIU/mLLuteal 1.2-12.9 mIU/mLPost [place] 10.9-58.6 mIU/mL Performed By: #### 6 556-5 #### [facility] ([id number]) [address] [place] [address] 15859 THYROID PROFILE INCLUDES TSH FT4on 10-07-2024 Free T4 [Mass/Vol] 0.70 ng/dL Normal 0.61-1.60 [facility] Comment on above: Performed By: #### 6 556-5 #### [facility] ([id number]) [address] [place] [address] TSH 0.86 uIU/mL Normal 0.49-4.67 [facility] Comment on above: Performed By: #### 6 556-5 #### [facility] ([id number]) [address] [place] [address] US PELVIC WITH TRANSVAGINALo n 10-07-2024 US PELVIC WITH TRANSVAGINAL US PELVIC WITH TRANSVAGINAL PELVIC ULTRASOUND CLINICAL INFORMATION: Polycystic ovarian syndrome COMPARISON: Pelvic ultrasound 07/14/2024. FINDINGS: Uterus: Surgically absent. Right ovary: Normal size and appearance, measuring 2.5 x 2.0 x 1.5 cm. Internal Doppler flow is present. Left Ovary: Normal size measuring 2.9 x 3.1 x 2.2 cm. Heterogeneous hypoechoic lesion with peripheral vascular flow in the left ovary measuring 1.9 x 1.3 x 1.2 cm likely represents a corpus luteum cyst versus hemorrhagic cyst. Internal Doppler flow is present in the left ovary. Other: No detectable free fluid in the pelvis. IMPRESSION: 1. Heterogeneous hypoechoic lesion in the left ovary with peripheral vascular flow measuring 1.9 cm likely represents a corpus luteum cyst versus hemorrhagic cyst. Consider follow-up pelvic ultrasound in 6 weeks to assess for resolution. 2. Otherwise normal appearance of the ovaries. Uterus is surgically absent. Finalized by Aris Nicole MD on 10/07/2024 10:27 AM Normal [facility] Urinalysis macro (dipstick) panel (U)on 08-10-2024 Bilirubin, UA Positive Negative - 4(70) +++ mg/dL [facility] Comment on above: small Blood, UA Positive Negative - 50 Yaw/mcL [facility] Comment on above: trace-intact Clarity, UA Clear [facility] Color, UA Yellow [facility] Glucose, UA Negative Negative - 2000(110) ++++ mg/dL [facility] Interpretation and review of laboratory results Abnormal [facility] Ketones, UA Positive Negative - 160(16) ++++ mg/dL [facility] Comment on above: 40 Leukocytes, UA Negative Negative - 500+++ Cinthia/mcL [facility] Nitrite, UA Negative Negative - Positive [facility] pH, UA 6 5 - 9 [facility] Zaarly e Protein, UA Positive Negative - 1999(20) ++++ mg/dL [facility] Comment on above: 30 Spec Grav, UA 1.03 1 - 1.03 [facility] Urobilinogen, UA 0.2 0.2 - 12 mg/dL [facility] MAMM DIAGNOSTIC BILATERAL W CADon 07-28-2024 MAMM DIAGNOSTIC BILATERAL W CAD MAMM DIAGNOSTIC BILATERAL W CAD [facility] 1990 [id number] EXAM: MAMM DIAGNOSTIC BILATERAL W CAD, 07/28/2024 12:23 PM CLINICAL INDICATIONS: Persistent nipple discharge, greenish, colostrum-like, bilateral in nature. COMPARISON: None TECHNIQUE: Bilateral digital tomosynthesis MLO and CC views of the breasts were obtained, with creation of synthetic 2D views. Computer aided detection was utilized. FINDINGS: There are scattered areas of fibroglandular density. There are no suspicious masses, calcifications, or areas of architectural distortion. IMPRESSION: No mammographic evidence of malignancy. BI-RADS: BI-RADS 1 - Negative RECOMMENDATION: Follow up with referring physician. Clinical management recommended for provided history of physiologic discharge, please correlate with patient history and physical exam. If there is concern for possible pathologic discharge, MRI evaluation should be considered. RISK ASSESSMENT: TC Lifetime risk: 4.8%. The patient's reported personal and family medical history was used calculate their Tyrer-Cuzick lifetime risk of malignancy. Scores less than 20% are not considered high risk per ACR guidelines and patient should continue with the above recommendation. Patient was given the results before leaving the department. Finalized by Reg Flynn MD on 07/28/2024 12:41 PM 1 b F/U REFER DR Dias [facility] CBC AND AUTO DIFFon 07-15-19 25 ABSOLUTE BASOPHIL 0.0 X10E9/L Normal 0.0-0.2 [facility] Comment on above: Performed By: #### C BCA, 39923-8, 3016-3, 3024-7, 22120-3, 55283-5, HA1C #### [facility] ([id number]) [address], [address] [place] [address] #### 2193-1 #### [facility] ([id number]) [address] [place] [address] 74531 ABSOLUTE NEUTROPHIL 4.1 X10E9/L Normal 1.5-6.6 [facility] Comment on above: Performed By: #### C SKIP, 14304-9, 6-3, 3024-7, 27647-8, 07711-8, HA1C #### [facility] ([id number]) [address], [address] [place] [address] #### 2193-1 #### [facility] ([id number]) [address] [place] [address] 60671 Basophils/100 WBC (Bld) 0.4 % Normal [facility] Comment on above: Performed By: #### Efrain VALDIVIA, 16493-1, 6-3, 4-7, 57170-5, 90943-6, HA1C #### [facility] ([id number]) [address], [address] [place] [address] #### 2193-1 #### [facility] ([id number]) [address] [place] [address] 12020 Eosinophils (Bld) [#/Vol] 0.1 10*3/uL Normal 0.0-0.4 [facility] Comment on above: Performed By: #### Efrain VALDIVIA, 70552-6, 6-3, 4-7, 74901-5, 52352-5, HA1C #### [facility] ([id number]) [address], [address] [place] [address] #### 2193-1 #### [facility] ([id number]) [address] [place] [address] 52542 Eosinophils/100 WBC (Bld) 1.1 % Normal [facility] Comment on above: Performed By: #### C SKIP, 00957-2, 3016-3, 3024-7, 33815-9, 67501-3, HA1C #### [facility] ([id number]) [address], [address] [place] [address] #### 2193-1 #### [facility] ([id number]) [address] [place] [address] 70153 Erythrocyte distribution width (RBC) [Ratio] 13.7 % Normal 11.5-15.0 [facility] Comment on above: Performed By: #### C SKIP, 72423-5, 6-3, 3024-7, 80960-6, 61327-3, HA1C #### [facility] ([id number]) [address], [address] [place] [address] #### 2193-1 #### [facility] ([id number]) [address] [place] [address] 02912 Hematocrit (Bld) [Volume fraction] 41.8 % Normal 35-47 [facility] Comment on above: Performed By: #### C SKIP, 42197-4, 6-3, 3024-7, 35098-1, 02108-1, HA1C #### [facility] ([id number]) [address], [address] [place] [address] #### 2193-1 #### [facility] ([id number]) [address] [place] [address] 20111 Hemoglobin (Bld) [Mass/Vol] 14.2 g/dL Normal 11.7-15.5 [facility] Comment on above: Performed By: #### C SKIP, 72185-7, 3016-3, 3024-7, 96883-3, 07007-0, HA1C #### [facility] ([id number]) [address], [address] [place] [address] #### 2193-1 #### [facility] ([id number]) [address] [place] [address] 39309 Lymphocytes (Bld) [#/Vol] 1.9 10*3/uL Normal 1.0-3.5 [facility] Comment on above: Performed By: #### C SKIP, 92299-0, 6-3, 3024-7, 68166-3, 96629-5, HA1C #### [facility] ([id number]) [address], [address] [place] [address] #### 2193-1 #### [facility] ([id number]) [address] [place] [address] 67906 Lymphocytes/100 WBC (Bld) 30.1 % Normal [facility] Comment on above: Performed By: #### C SKIP, 08252-4, 3015-3, 4-7, 19802-0, 14383-5, HA1C #### [facility] ([id number]) [address], [address] [place] [address] #### 2193-1 #### [facility] ([id number]) [address] [place] [address] 61064 MCH (RBC) [Entitic mass] 29.2 pg Normal 27-34 [facility] Comment on above: Performed By: #### C SKIP, 73155-0, 6-3, 4-7, 49409-8, 76440-3, HA1C #### [facility] ([id number]) [address], [address] [place] [address] #### 2193-1 #### [facility] ([id number]) [address] [place] [address] 71820 MCHC (RBC) [Mass/Vol] 33.9 g/dL Normal 32-36 [facility] Comment on above: Performed By: #### C BCA, 32006-1, 6-3, 3024-7, 34947-0, 08221-1, HA1C #### [facility] ([id number]) [address], [address] [place] [address] #### 2193-1 #### [facility] ([id number]) [address] [place] [address] 32448 MCV (RBC) [Entitic vol] 86 fL Normal 80-100 [facility] Comment on above: Performed By: #### C BCA, 38938-5, 6-3, 3024-7, 10791-7, 58249-5, HA1C #### [facility] ([id number]) [address], [address] [place] [address] #### 2193-1 #### [facility] ([id number]) [address] [place] [address] 93448 Monocytes (Bld) [#/Vol] 0.2 10*3/uL Normal 0-0.9 [facility] Comment on above: Performed By: #### C BCA, 11022-1, 6-3, 4-7, 50558-7, 77557-7, HA1C #### [facility] ([id number]) [address], [address] [place] [address] #### 2193-1 #### [facility] ([id number]) [address] [place] [address] 77879 Monocytes/100 WBC (Bld) 3.8 % Normal [facility] Comment on above: Performed By: #### C BCA, 70774-5, 6-3, 3024-7, 43459-7, 65540-3, HA1C #### [facility] ([id number]) [address], [address] [place] [address] #### 2193-1 #### [facility] ([id number]) [address] [place] [address] 07096 Neutrophils/100 WBC (Bld) 64.6 % Normal [facility] Comment on above: Performed By: #### C SKIP, 81861-1, 3015-3, 3023-7, 45072-5, 73410-5, HA1C #### [facility] ([id number]) [address], [address] [place] [address] #### 2193-1 #### [facility] ([id number]) [address] [place] [address] 67086 Platelet mean volume (Bld) [Entitic vol] 8.7 fL Normal 7-12 [facility] Comment on above: Performed By: #### C SKIP, 25208-4, 3015-3, 3023-7, 22949-2, 85622-4, HA1C #### [facility] ([id number]) [address], [address] [place] [address] #### 2193-1 #### [facility] ([id number]) [address] [place] [address] 64283 Platelets (Bld) [#/Vol] 299 10*3/uL Normal 150-450 [facility] Comment on above: Performed By: #### C SKIP, 71255-5, 3015-3, 3023-7, 76192-3, 48562-0, HA1C #### [facility] ([id number]) [address], [address] [place] [address] #### 2193-1 #### [facility] ([id number]) [address] [place] [address] 77376 RBC COUNT 4.86 X10E12/L Normal 3.80-5.20 [facility] Comment on above: Performed By: #### C SKIP, 23801-7, 3016-3, 3024-7, 87663-6, 20875-8, HA1C #### [facility] ([id number]) [address] [facility], [address] [place] [address] #### 2193-1 #### [facility] ([id number]) [address] [place] [address] WBC (Bld) [#/Vol] 6.4 10*3/uL Normal 4.0-11.0 [facility] Comment on above: Performed By: #### C BCA, 19691-2, 3016-3, 3024-7, 47941-7, 21610-9, HA1C #### [facility] ([id number]) [address] [facility], [address] [place] [address] #### 2193-1 #### [facility] ([id number]) [address] [place] [address] 16603 DHEA [Mass/Vol]on 07-14-2024 Dehydroepiandrostero ne, S 12 ng/mL High <10 [facility] Comment on above: Result Comment: NOTE ADDITIONAL INFORMATION This test was developed and its performance characteristics determined by [facility] in a manner consistent with CLIA requirements. This test has not been cleared or approved by the U.S. Food and Drug Administration. Test Performed by: [facility] [address] [place] [address] Grades 1 Through 6 Teacher: Sudheer Galeana Ph.D.; CLIA# [id number] Performed By: #### 6 556-5 #### [facility] ([id number]) [address] [place] [address] 40885 DHEA-S [Mass/Vol]on 07-15-19 25 DHEA S 314 ug/dL High 23-266 [facility] Comment on above: Performed By: #### 6 556-5 #### [facility] ([id number]) [address] [place] [address] 33406 FREE T4on 07-14-2024 Free T4 [Mass/Vol] 0.77 ng/dL Normal 0.61-1.60 [facility] Comment on above: Performed By: #### C SKIP, 88910-9, 6-3, 4-7, 46260-6, 30936-1, HA1C #### [facility] ([id number]) [address] [place] [address], [address] [place] [address] #### 2193-1 #### [facility] ([id number]) [address] [place] [address] 35983 Follitropin Qnon 07-14-2024 FOLLICLE STIM HORMONE 6.6 mIU/mL Normal [facility] Comment on above: Result Comment: NORMAL FEMALE Luteal 1.8-5.1 mIU/mL Follicular 3.8-8.8 mIU/mL Mid Cycle 4.5-22.5 mIU/mL Post Cele 16.7-113.6 mIU/mL Performed By: #### Efrain VALDIVIA, 44870-2, 6-3, 4-7, 57256-2, 20209-9, HA1C #### [facility] ([id number]) [address] [place] [address], [address] [place] [address] #### 2193-1 #### [facility] ([id number]) [address] [place] [address] 81074 HCG.beta subunit IA 3rd IS Q non 07-14-2024 SERUM B HCG,3RD I.S. <5 Normal [facility] Comment on above: Result Comment: NEW REFERENCE RANGE WEEKS (SINCE LMP) MIU/mL 3 WEEKS 5 - 50 4 WEEKS 5 - 426 5 WEEKS 18 - 7,340 6 WEEKS 1,080 - 56,500 7-8 WEEKS 7,650 - 229,000 9-12 WEEKS 25,700 - 288,000 13-16 WEEKS 13,300 - 254,000 17-24 WEEKS 4,060 - 165,400 25-40 WEEKS 3,640 - 117,000 MALES AND NON- FEMALES - <5 MIU/mL This test has been FDA approved for use in only. Elevated levels are not necessarily diagnostic for trophoblastic or nontrophoblastic neoplasms. Performed By: #### C BCA, 19697-0, 3016-3, 3024-7, 57193-4, 22603-8, HA1C #### [facility] ([id number]) [address] [facility], [address] [place] [address] #### 2193-1 #### [facility] ([id number]) [address] [place] [address] 78869 HGB A1C (GLYCO-HGB)on 2024 Glucose [Mass/Vol] 114 mg/dL Normal [facility] Comment on above: Performed By: #### C BCA, 02811-6, 3016-3, 3024-7, 97626-2, 87221-5, HA1C #### [facility] ([id number]) [address] [facility], [address] [place] [address] #### 2193-1 #### [facility] ([id number]) [address] [place] [address] 91406 HbA1c (Bld) [Mass fraction] 5.6 % Normal 4.4-5.6 [facility] Comment on above: Result Comment: NOTE ADA Guidelines Result HgbA1c Normal : less than 5.7 % Prediabetes : 5.7 % to 6.4 % Diabetes : > 6.4 % Use with caution in patients with abnormal hemoglobin variants as the half-life of red blood cells and in vivo glycation rates are affected. Performed By: #### C SKIP, 37156-1, 6-3, 3024-7, 01236-1, 21757-6, HA1C #### [facility] ([id number]) [address] [facility], [address] [place] [address] #### 2193-1 #### [facility] ([id number]) [address] [place] [address] 05737 Lutropin Qnon 07-14-2024 LUTEINIZING HORMONE 8.6 mIU/mL Normal [facility] Comment on above: Result Comment: NORMAL FEMALE Follicular 2.1-10.9 mIU/mL Mid Cycle 19.2-103 mIU/mL Luteal 1.2-12.9 mIU/mL [place] 10.9-58.6 mIU/mL Performed By: #### C SKIP, , 3015-3, 3024-7, 58855-2, 75084-0, HA1C #### [facility] ([id number]) [address] [facility], [address] [place] [address] #### 2193-1 #### [facility] ([id number]) [address] [place] [address] 38856 TSH Qnon 07-14-2024 TSH 1.17 uIU/mL Normal 0.49-4.67 [facility] Comment on above: Performed By: #### C SKIP, , 6-3, 3024-7, 96567-8, 34146-4, HA1C #### [facility] ([id number]) [address] [facility], [address] [place] [address] #### 2193-1 #### [facility] ([id number]) [address] [place] [address] 95090 US PELVIC WITH TRANSVAGINALo n 07-14-2024 US PELVIC WITH TRANSVAGINAL US PELVIC WITH TRANSVAGINAL Clinical history: Pelvic pain prior hysterectomy Findings:Transabdomin al ultrasound was performed of the pelvis.. Endovaginal sonography was also performed to better evaluate the pelvic and adnexal structures.. Right ovary 2.8 x 1.5 x 1.8 cm. Left ovary 3.1 x 1.8 x 1.9 cm. No adnexal mass or free fluid. Small left ovarian follicles. Impression: Unremarkable pelvic ultrasound as above. Finalized by Uli Otto MD on 07/14/2024 11:00 AM Normal [facility] Urinalysis macro (dipstick) panel (U)on 06-10-2024 Bilirubin, UA Negative Negative - 4(70) +++ mg/dL [facility] Blood, UA Negative Negative - 50 Yaw/mcL [facility] Clarity, UA Clear [facility] Color, UA Yellow [facility] Glucose, UA Negative Negative - 1999(110) ++++ mg/dL [facility] Interpretation and review of laboratory results Normal [facility] Ketones, UA Negative Negative - 160(16) ++++ mg/dL [facility] Leukocytes, UA Negative Negative - 500+++ Cinthia/mcL [facility] Nitrite, UA Negative Negative - Positive [facility] pH, UA 6 5 - 9 [facility] Protein, UA Negative Negative - 1999(20) ++++ mg/dL [facility] Spec Grav, UA 1.025 1 - 1.03 [facility] Urobilinogen, UA 0.2 0.2 - 12 mg/dL [facility] RAPID STREP SCR NURSINGon S. pyogenes Ag EIA Ql (Throat) Positive Abnormal NEG [facility] Comment on above: Performed By: #### 6 556-5 #### [facility] ([id number]) [address] [place] [address] 15511 SARS/FLU A+B/RSV by NAAT/Mol ecularon 06-05-2024 SARS/FLU A+B/RSV by NAAT/Molecular FLU A PCR [...] operators who are performing tests using either [employer] or [employer] systems and is limited to laboratories that [...] specimen repeat. Fact Sheet for Healthcare Providers: https://www.fda.gov/m edia/118170/download Fact Sheet for Patients: https://www.fda.gov/m edia/560779/download [facility] Comment on above: Performed By: #### C OVFLR #### [facility] ([id number]) [address] [place] [address], [place] [address] CBC AND AUTO DIFFon 05-08-19 25 ABSOLUTE BASOPHIL 0.1 X10E9/L Normal 0.0-0.2 [facility] Comment on above: Performed By: #### C SKIP, 64399-4, 99906-5, CMP, 1987-08, , THYR, 51778-8 #### [facility] ([id number]) [address], [address] [place] [address] ABSOLUTE NEUTROPHIL 4.5 X10E9/L Normal 1.5-6.6 [facility] Comment on above: Performed By: #### C SKIP, 77283-3, 22987-9, CMP, 1987-08, , THYR, 18607-6 #### [facility] ([id number]) [address], [address] [place] [address] Basophils/100 WBC (Bld) 0.8 % Normal [facility] Comment on above: Performed By: #### C BCA, 10929-2, , CMP, 1987-08, , THYR, 68705-9 #### [facility] ([id number]) [address], [address] [place] [address] Eosinophils (Bld) [#/Vol] 0.1 10*3/uL Normal 0.0-0.4 [facility] Comment on above: Performed By: #### C BCA, 46524-3, 83779-4, CMP, 1987-08, , THYR, 43763-7 #### [facility] ([id number]) [address], [address] [place] [address] Eosinophils/100 WBC (Bld) 0.7 % Normal [facility] Comment on above: Performed By: #### C BCA, 10262-5, 32565-4, CMP, 1987-08, , THYR, 41197-2 #### [facility] ([id number]) [address], [address] [place] [address] Erythrocyte distribution width (RBC) [Ratio] 13.4 % Normal 11.5-15.0 [facility] Comment on above: Performed By: #### C BCA, 89874-6, 30891-0, CMP, 1987-08, , THYR, 42118-9 #### [facility] ([id number]) [address], [address] [place] [address] Hematocrit (Bld) [Volume fraction] 43.0 % Normal 35-47 [facility] Comment on above: Performed By: #### C BCA, 92103-9, 37670-1, CMP, 1987-08, , THYR, 62062-9 #### [facility] ([id number]) [address], [address] [place] [address] Hemoglobin (Bld) [Mass/Vol] 14.3 g/dL Normal 11.7-15.5 [facility] Comment on above: Performed By: #### C BCA, 29890-3, 41650-1, CMP, 1987-08, , THYR, 21055-3 #### [facility] ([id number]) [address], [address] [place] [address] Lymphocytes (Bld) [#/Vol] 2.0 10*3/uL Normal 1.0-3.5 [facility] Comment on above: Performed By: #### C BCA, 90704-0, 67238-6, CMP, 1987-08, , THYR, 22113-0 #### [facility] ([id number]) [address], [address] [place] [address] Lymphocytes/100 WBC (Bld) 28.5 % Normal [facility] Comment on above: Performed By: #### C BCA, 61839-2, 07577-3, CMP, 1987-08, , THYR, 56502-1 #### [facility] ([id number]) [address], [address] [place] [address] MCH (RBC) [Entitic mass] 28.8 pg Normal 27-34 [facility] Comment on above: Performed By: #### C BCA, 28754-2, 79841-3, CMP, 1987-08, , THYR, 47360-3 #### [facility] ([id number]) [address], [address] [place] [address] MCHC (RBC) [Mass/Vol] 33.2 g/dL Normal 32-36 [facility] Comment on above: Performed By: #### C BCA, 42723-8, , CMP, 1987-08, , THYR, 48795-1 #### [facility] ([id number]) [address], [address] [place] [address] MCV (RBC) [Entitic vol] 87 fL Normal 80-100 [facility] Comment on above: Performed By: #### C BCA, 00121-8, , CMP, 1987-08, , THYR, 83928-3 #### [facility] ([id number]) [address], [address] [place] [address] Monocytes (Bld) [#/Vol] 0.3 10*3/uL Normal 0-0.9 [facility] Comment on above: Performed By: #### C BCA, 58078-5, 40828-3, CMP, 1987-08, , THYR, 19714-0 #### [facility] ([id number]) [address], [address] [place] [address] Monocytes/100 WBC (Bld) 4.8 % Normal [facility] Comment on above: Performed By: #### C BCA, 08106-8, 72613-2, CMP, 1987-08, - , THYR, 94691-2 #### [facility] ([id number]) [address], [address] [place] [address] Neutrophils/100 WBC (Bld) 65.2 % Normal [facility] Comment on above: Performed By: #### C BCA, 52644-7, 42150-9, CMP, 1987-08, - , THYR, 82668-9 #### [facility] ([id number]) [address], [facility] [address] [place] [address] Platelet mean volume (Bld) [Entitic vol] 8.8 fL Normal 7-12 [facility] Comment on above: Performed By: #### C BCA, 09517-8, 76372-6, CMP, 1987-08, , THYR, 96445-5 #### [facility] ([id number]) [address], [facility] [address] [place] [address] Platelets (Bld) [#/Vol] 347 10*3/uL Normal 150-450 [facility] Comment on above: Performed By: #### C BCA, 65294-0, 73199-5, CMP, 1987-08, , THYR, 66523-6 #### [facility] ([id number]) [address], [address] [place] [address] RBC COUNT 4.96 X10E12/L Normal 3.80-5.20 [facility] Comment on above: Performed By: #### C BCA, 57447-9, 83840-3, CMP, 1987-08, , THYR, 27453-5 #### [facility] ([id number]) [address], [address] [place] [address] WBC (Bld) [#/Vol] 7.0 10*3/uL Normal 4.0-11.0 [facility] Comment on above: Performed By: #### C BCA, 67821-7, 14960-5, CMP, 1987-08, 51508- 1, THYR, 34010-1 #### [facility] ([id number]) [address], [address] [place] [address] COMPREHENSIVE METABOLIC PANE Xavi 05-08-2024 Albumin [Mass/Vol] 4.5 g/dL Normal 3.2-5.3 [facility] Comment on above: Performed By: #### C BCA, 77126-5, 35247-3, CMP, 1987-08, - , THYR, 10285-4 #### [facility] ([id number]) [address], [address] [place] [address] ALP [Catalytic activity/Vol] 55 U/L Normal 39-130 [facility] [place] Comment on above: Performed By: #### C BCA, 88777-7, 96015-7, CMP, 1987-08, 69891- , THYR, 39925-5 #### [facility] ([id number]) [address], [address] [place] [address] ALT [Catalytic activity/Vol] 17 U/L Normal 0-31 [facility] [place] Comment on above: Performed By: #### C BCA, 82569-1, 09207-3, CMP, 1987-08, 78363- , THYR, 58294-8 #### [facility] ([id number]) [address], [address] [place] [address] Anion gap [Moles/Vol] 8 mmol/L Normal 5-15 [facility] [place] Comment on above: Performed By: #### C BCA, 04559-3, 17530-4, CMP, 1987-08, - , THYR, 77080-6 #### [facility] ([id number]) [address], [address] [place] [address] AST [Catalytic activity/Vol] 20 U/L Normal 0-41 [facility] [place] Comment on above: Performed By: #### C BCA, 05467-9, 44250-9, CMP, 1987-08, - , THYR, 00713-9 #### [facility] ([id number]) [address], [address] [place] [address] Bilirubin [Mass/Vol] 0.3 mg/dL Normal 0.3-1.2 [facility] Comment on above: Performed By: #### C BCA, 53629-5, 27304-0, CMP, 1987-08, , THYR, 09645-6 #### [facility] ([id number]) [address], [address] [place] [address] Calcium [Mass/Vol] 9.8 mg/dL Normal 8.5-10.5 [facility] Comment on above: Performed By: #### C BCA, 83399-8, 01459-6, CMP, 1987-08, , THYR, 04697-3 #### [facility] ([id number]) [address], [address] [place] [address] Chloride [Moles/Vol] 105 mmol/L Normal 98-109 [facility] Comment on above: Performed By: #### C BCA, 99727-5, 10161-0, CMP, 1987-08, , THYR, 61778-0 #### [facility] ([id number]) [address], [address] [place] [address] CO2 [Moles/Vol] 26 mmol/L Normal 22-32 [facility] [place] Comment on above: Performed By: #### C BCA, 64258-3, 61445-4, CMP, 1987-08, , THYR, 61775-0 #### [facility] ([id number]) [address], [address] [place] [address] Creatinine [Mass/Vol] 0.69 mg/dL Normal 0.40-1.00 [facility] [place] Comment on above: Result Comment: METH OD TRACEABLE TO IDMS STANDARD Performed By: #### C BCA, 08436-9, 38520-5, CMP, 1987-08, , THYR, 92250-4 #### [facility] ([id number]) [address], [address] [place] [address] eGFR (CKD-EPI) NON-RACE DEPENDENT >90 Normal >59 [facility] Comment on above: Result Comment: Reported eGFR is based on the CKD-EPI 2020 equation that does not use a race coefficient. Performed By: #### C BCA, 54193-7, 71459-6, CMP, 1987-08, , THYR, 48578-0 #### [facility] ([id number]) [address], [address] [place] [address] Glucose [Mass/Vol] 85 mg/dL Normal 65-99 [facility] Comment on above: Performed By: #### C BCA, 38476-3, 25862-5, CMP, 1987-08, , THYR, 23937-2 #### [facility] ([id number]) [address], [address] [place] [address] Potassium [Moles/Vol] 4.9 mmol/L Normal 3.5-5.0 [facility] Comment on above: Performed By: #### C BCA, 56025-1, 74544-4, CMP, 1987-08, , THYR, 90200-1 #### [facility] ([id number]) [address], [address] [place] [address] Protein [Mass/Vol] 7.6 g/dL Normal 6.0-8.0 [facility] Comment on above: Performed By: #### C BCA, 87327-7, 00142-9, CMP, 1987-08, 78967- , THYR, 16438-2 #### [facility] ([id number]) [address], [address] [place] [address] Sodium [Moles/Vol] 139 mmol/L Normal 134-146 [facility] Comment on above: Performed By: #### C BCA, 64440-4, 60034-0, CMP, 1987-08, , THYR, 48892-0 #### [facility] ([id number]) [address], [address] [place] [address] Urea nitrogen [Mass/Vol] 8 mg/dL Normal 5-23 [facility] Comment on above: Performed By: #### C BCA, 84707-6, 28172-4, CMP, 1987-08, , THYR, 91790-4 #### [facility] ([id number]) [address], [address] [place] [address] CRP [Mass/Vol]on 05-08-2024 C REACTIVE PROTEIN 0.3 mg/dL Normal 0.000-0.744 [facility] Comment on above: Performed By: #### C BCA, 00672-7, 09968-3, CMP, 1987-08, , THYR, 24184-5 #### [facility] ([id number]) [address], [address] [place] [address] ESR Photometric method (Bld) [Velocity]on 05-08-2024 ESR, ERYTHROCYTE SEDIMENTATION RATE 28 mm/h High 0-20 [facility] Comment on above: Performed By: #### C BCA, 08368-6, 60935-9, CMP, 1987-08, - , THYR, 07248-8 #### [facility] ([id number]) [address], [address] [place] [address] Lipid 1996 panelon 5 Cholesterol [Mass/Vol] 180 mg/dL Normal 150-200 [facility] Comment on above: Performed By: ###Janey Zuniga BCA, 71183-4, , CMP, 1987-08, , THYR, 16521-6 #### [facility] ([id number]) [address], [address] [place] [address] Cholesterol in HDL [Mass/Vol] 51 mg/dL Normal >39 [facility] Comment on above: Result Comment: HDL <40 mg/dL - High Risk HDL > or = 40mg/dL- Desirable HDL >60 mg/dL - Negative Risk Performed By: ###Janey Zuniga BCA, 47282-3, , CMP, 1987-08, , THYR, 06941-6 #### [facility] ([id number]) [address], [address] [place] [address] Cholesterol in LDL [Mass/Vol] 114 mg/dL Normal <130 [facility] Comment on above: Result Comment: LDL <100 mg/dL - Desirable LDL >160 mg/dL - High Risk Performed By: ##Beatriz Zuniga BCA, 71762-8, , CMP, 1987-08, , THYR, 41829-6 #### [facility] ([id number]) [address], [address] [place] [address] Cholesterol in VLDL [Mass/Vol] 15 mg/dL Normal 0-30 [facility] Comment on above: Performed By: ###Janey Zuniga BCA, 41256-1, 70186-2, CMP, 1987-08, - , THYR, 22792-7 #### [facility] ([id number]) [address] [address] CHOLESTEROL:HDL 3.5 Normal 1.0-5.0 [facility] Comment on above: Performed By: #### C BCA, 15477-6, 13488-4, CMP, 1987-08, , THYR, 57021-7 #### [facility] ([id number]) [address] [facility] [address] [address] Triglyceride [Mass/Vol] 77 mg/dL Normal 27-150 [facility] Comment on above: Performed By: #### C BCA, 53504-5, 89205-3, CMP, 1987-08, , THYR, 92780-2 #### [facility] ([id number]) [address] [address] Nuclear Ab IA Ql (S)on 05-08 BECKA Screen w/reflex Negative Normal NEG [facility] Comment on above: Result Comment: Testing performed using multiplex flow immunoassay. Eleven different antigens associated with systemic autoimmune diseases (dsDNA,Sm,Sm/DYE BOX OPERATOR,DYE BOX OPERATOR,Chromatin, SSA,SSB,Bouchra-1,Scl70,Ribo P,Centromere B) are included in this screening test. Performed By: #### C BCA, 79341-2, 73183-8, CMP, 1987-08, , THYR, 32084-7 #### [facility] ([id number]) [address] [address] Rheumatoid factor Nephelomet ry Qn (S)on 05-08-2024 RHEUMATOID FACTOR <10 Normal <20 [facility] Comment on above: Performed By: #### C BCA, 33533-5, 29931-6, CMP, 1987-08, - , THYR, 09738-6 #### [facility] ([id number]) [address] [facility], [address] [place] [address] THYROID PROFILEon 05-08-2024 Free T4 [Mass/Vol] 0.86 ng/dL Normal 0.61-1.60 [facility] Comment on above: Performed By: #### C BCA, 90557-5, 08781-3, CMP, 1987-08, , THYR, 03854-4 #### [facility] ([id number]) [address] [facility], [address] [place] [address] TSH 0.86 uIU/mL Normal 0.49-4.67 [facility] Comment on above: Performed By: #### C BCA, 25411-6, 09588-1, CMP, 1987-08, , THYR, 97043-0 #### [facility] ([id number]) [facility], [address] [place] [address] IGP,APTIMA HPV,AGE GDLNon AGE GDLN ACOG TESTING Note . [facility] Comment on above: TESTS RESULT FLAG UN ITS REF RANGE LAB Clinician Provided Cytology Information Source.............Cervix;Endocervix No. of containers..01 ThinPrep Vial Age Algo ACOG Marya... FLAG LEGEND: L-Low Normal,H-High Normal,LL-Alert Low,HH-Alert High <-Panic Low,>-Panic High,A-Abnormal,AA-Critical Abnormal Performed at: 01 =G [address] [address] Jana Garcia MD, HPV APTIMA Positive Abnormal Negative [facility] Comment on above: This nucleic acid am plification test detects fourteen high- risk HPV types (16,18,31,33,35,39,45,51,52,56,58,59,66,68) without differentiation. HPV GENOTYPE 16 Negative Negative [facility] HPV GENOTYPE 18,45 Negative Negative [facility] Comment on above: Performed at: =G - L [address] [id number] Grades 1 Through 6 Teacher: Jana Garcia MD, Phone: [phone] Performed at: [facility] [address] [id number] Grades 1 Through 6 Teacher: Jana Garcia MD, Phone: [phone] IGP, APTIMA HPV, RFX 16/18,45 Note . [facility] Comment on above: TESTS RESULT FLAG UN ITS REF RANGE LAB DIAGNOSIS: 02 NEGATIVE FOR INTRAEPITHELIAL LESION OR MALIGNANCY. Specimen adequacy: 02 Satisfactory for evaluation. No endocervical component is identified. Performed by: 02 Candelario Mullins, Induction Heat Treater (ASCP) . 02 Note: Note 02 The Pap smear is a screening test designed to aid in the detection of premalignant and malignant conditions of the uterine cervix. It is not a diagnostic procedure and should not be used as the sole means of detecting cervical cancer. Both false-positive and false-negative reports do occur. Test Methodology: Note 02 This liquid based ThinPrep(R) pap test was screened with the use of an image guided system. HPV Genotype Reflex Note 02 Criteria met, see HPV Genotype results. FLAG LEGEND: L-Low Normal,H-High Normal,LL-Alert Low,HH-Alert High <-Panic Low,>-Panic High,A-Abnormal,AA-Critical Abnormal Performed at: [address] [address] Jana Garcia MD, Interpretation and review of laboratory results Abnormal [facility] [employer] BRUSH-SPATULA CERVIX ENDOCERVIX CLINISYNC [facility] Cervical or vaginal smear or scraping studyon 02-03-2024 [facility] PAP ACOG PANEL 2: 21 to 29on 01-01-2020 Age Gdln ACOG Testing 21-29 Normal [facility] Comment on above: Performed By: #### 4 [id number] #### [facility] [address] [place] [address] Maisha Wild DIAGNOSIS: Comment Normal [facility] Comment on above: Result Comment: NEGA TIVE FOR INTRAEPITHELIAL LESION OR MALIGNANCY. Performed By: #### 4 [id number] #### [facility] [address] [address] Maisha Wild Methodology: Comment Normal [facility] Comment on above: Result Comment: This liquid based SurePath(R) pap test was screened with the assistance of an image guided system. Performed By: #### 4 [id number] #### [facility] [address] [place] [address] Maisha Wild Note: Comment Normal [facility] Comment on above: Result Comment: The Pap smear is a screening test designed to aid in the detection of premalignant and malignant conditions of the uterine cervix. It is not a diagnostic procedure and should not be used as the sole means of detecting cervical cancer. Both false-positive and false-negative reports do occur. . Performed By: #### 4 [id number] #### [facility] [address] [place] [address] Maisha Torri Performed by: Comment Normal [facility] Comment on above: Result Comment: Kiana Parker, Induction Heat Treater (ASCP) Performed By: #### 4 [id number] #### [facility] [address] [place] [address] Maisha Torri Reflex Criteria: Comment Normal [facility] Comment on above: Result Comment: The HPV DNA reflex criteria were not met with this specimen result therefore, no HPV testing was performed. . Performed By: #### 4 [id number] #### [facility] [address] [place] [address] Maisha Torri Specimen adequacy: Comment Normal [facility] Comment on above: Result Comment: Sati sfactory for evaluation. No endocervical component is identified. Performed By: #### 4 [id number] #### [facility] [address] [place] [address] Maisha Torri . . Normal [facility] Comment on above: Performed By: #### 4 [id number] #### [facility] [address] [place] [address] Maisha Torri CULTURE WOUNDon 06-11-2019 CULTURE WOUND Culture Observations : Normal skin kenia. Culture Observations: No growth of anaerobes at 72 hours. Normal [facility] Comment on above: Performed By: #### W OUNDCX #### [facility] [address] [place] [address] Maisha Torri GRAM STAINon 06-11-2019 Microscopic observation Gram stain Nom (Unsp spec) LEFT NIPPLE Normal [facility] Comment on above: Performed By: #### G STAIN #### [facility] [address] [place] [address] Maisha Torri Microscopic observation Gram stain Nom (Unsp spec) [facility] Comment on above: Performed By: #### G STAIN #### [facility] [address] [place] [address] Maisha Torri Microscopic observation Gram stain Nom (Unsp spec) NO ORGANISMS OBSERVED Normal [facility] Comment on above: Performed By: #### G STAIN #### [facility] [address] [place], [place] [address] Maishatyler Willisen WBC (Bld) [#/Vol] NONE SEEN Normal [facility] Comment on above: Performed By: #### G STAIN #### [facility] [address] [place], [place] [address] Maisha Wild Vital Signs Date Time Vital Sign Value Performing Clinician Facility 10-28-2024 14:57-0400 Body mass index (BMI) [Ratio] 32.56 kg/m2 Nadiya Edwin DO Work Phone: [facility] 10-28-2024 14:57-0400 Body weight 70.67 kg Nadiya Edwin DO Work Phone: [facility] 10-28-2024 14:57-0400 Diastolic blood pressure 78 mm[Hg] Nadiya Edwin DO Work Phone: [facility] 10-28-2024 14:57-0400 Systolic blood pressure 118 mm[Hg] Nadiya Edwin DO Work Phone: [facility] 10-07-2024 10:36-0400 Body height 151 cm Jm Reddy APRN-CAR DELIVERER Work Phone: [facility] 10-07-2024 10:36-0400 Body mass index (BMI) [Ratio] 30.48 kg/m2 Jm Reddy TRAVERSE ROD ASSEMBLER-CAR DELIVERER Work Phone: [facility] 10-07-2024 10:36-0400 Body temperature 98.71 [degF] Jm Reddy TRAVERSE ROD ASSEMBLER-CAR DELIVERER Work Phone: [facility] 10-07-2024 10:36-0400 Body weight 69.49 kg Jm Reddy TRAVERSE ROD ASSEMBLER-CAR DELIVERER Work Phone: [facility] 10-07-2024 10:36-0400 Diastolic blood pressure 64 mm[Hg] Jm Reddy TRAVERSE ROD ASSEMBLER-CAR DELIVERER Work Phone: [facility] 10-07-2024 10:36-0400 Heart rate 70 /min Jm Reddy TRAVERSE ROD ASSEMBLER-CAR DELIVERER Work Phone: [facility] 10-07-2024 10:36-0400 SaO2% (BldA) [Mass fraction] 98 % Jm Reddy TRAVERSE ROD ASSEMBLER-CAR DELIVERER Work Phone: [facility] 10-07-2024 10:36-0400 Systolic blood pressure 100 mm[Hg] Jm Reddy TRAVERSE ROD ASSEMBLER-CAR DELIVERER Work Phone: [facility] 09-29-2024 14:07-0400 Body mass index (BMI) [Ratio] 32.27 kg/m2 Elizabeth ROBBINS Work Phone: [facility] 09-29-2024 14:07-0400 Body weight 70.03 kg Elizabeth Boston PA Work Phone: [facility] 09-29-2024 14:07-0400 Diastolic blood pressure 74 mm[Hg] Elizabeth Boston PA Work Phone: [facility] 09-29-2024 14:07-0400 Systolic blood pressure 114 mm[Hg] Elizabeth Boston PA Work Phone: [facility] 08-10-2024 14:54-0400 Body mass index (BMI) [Ratio] 32.69 kg/m2 Nadiya Edwin DO Work Phone: [facility] 08-10-2024 14:54-0400 Body weight 70.94 kg Nadiya Edwin DO Work Phone: [facility] 08-10-2024 14:54-0400 Diastolic blood pressure 70 mm[Hg] Nadiya Edwin DO Work Phone: [facility] 08-10-2024 14:54-0400 Systolic blood pressure 120 mm[Hg] Nadiya Edwin DO Work Phone: [facility] 07-06-2024 10:57-0400 Body height 151 cm Jm Reddy TRAVERSE ROD ASSEMBLER-CAR DELIVERER Work Phone: [facility] 07-06-2024 10:57-0400 Body mass index (BMI) [Ratio] 31.99 kg/m2 Jm Reddy TRAVERSE ROD ASSEMBLER-CAR DELIVERER Work Phone: [facility] 07-06-2024 10:57-0400 Body temperature 98.29 [degF] Jm Reddy TRAVERSE ROD ASSEMBLER-CAR DELIVERER Work Phone: [facility] 07-06-2024 10:57-0400 Body weight 72.94 kg Jm Reddy TRAVERSE ROD ASSEMBLER-CAR DELIVERER Work Phone: [facility] 07-06-2024 10:57-0400 Diastolic blood pressure 82 mm[Hg] Jm Reddy TRAVERSE ROD ASSEMBLER-CAR DELIVERER Work Phone: [facility] 07-06-2024 10:57-0400 Heart rate 97 /min Jm Reddy TRAVERSE ROD ASSEMBLER-CAR DELIVERER Work Phone: [facility] 07-06-2024 10:57-0400 SaO2% (BldA) [Mass fraction] 94 % Jm Reddy TRAVERSE ROD ASSEMBLER-CAR DELIVERER Work Phone: [facility] 07-06-2024 10:57-0400 Systolic blood pressure 110 mm[Hg] Jm Reddy TRAVERSE ROD ASSEMBLER-CAR DELIVERER Work Phone: [facility] 06-17-2024 13:15-0500 Body mass index (BMI) [Ratio] 33.85 kg/m2 Jm Reddy TRAVERSE ROD ASSEMBLER-CAR DELIVERER Work Phone: [facility] 06-17-2024 13:15-0500 Body temperature 98.4 [degF] Jm Reddy TRAVERSE ROD ASSEMBLER-CAR DELIVERER Work Phone: [facility] 06-17-2024 13:15-0500 Body weight 76.02 kg Jm Reddy TRAVERSE ROD ASSEMBLER-CAR DELIVERER Work Phone: [facility] 06-17-2024 13:15-0500 Diastolic blood pressure 72 mm[Hg] Jm Reddy TRAVERSE ROD ASSEMBLER-CAR DELIVERER Work Phone: [facility] 06-17-2024 13:15-0500 Heart rate 90 /min Jm Reddy TRAVERSE ROD ASSEMBLER-CAR DELIVERER Work Phone: [facility] 06-17-2024 13:15-0500 SaO2% (BldA) [Mass fraction] 99 % Jm Reddy TRAVERSE ROD ASSEMBLER-CAR DELIVERER Work Phone: [facility] 06-17-2024 13:15-0500 Systolic blood pressure 112 mm[Hg] Jm Reddy TRAVERSE ROD ASSEMBLER-CAR DELIVERER Work Phone: [facility] 06-09-2024 14:04-0500 Body mass index (BMI) [Ratio] 34.49 kg/m2 Nadiya Edwin DO Work Phone: [facility] 06-09-2024 14:04-0500 Body weight 74.84 kg Nadiya Edwin DO Work Phone: [facility] 06-09-2024 14:04-0500 Diastolic blood pressure 72 mm[Hg] Nadiya Edwin DO Work Phone: [facility] 06-09-2024 14:04-0500 Systolic blood pressure 122 mm[Hg] Nadiya Edwin DO Work Phone: [facility] 02-03-2024 15:08-0400 Body mass index (BMI) [Ratio] 33.65 kg/m2 Elizabeth ROBBINS Work Phone: [facility] 02-03-2024 15:08-0400 Body weight 73.03 kg Elizabeth ROBBINS Work Phone: [facility] 02-03-2024 15:08-0400 Diastolic blood pressure 76 mm[Hg] Elizabeth ROBBINS Work Phone: [facility] 02-03-2024 15:08-0400 Systolic blood pressure 118 mm[Hg] Elizabeth ROBBINS Work Phone: [facility] En[facility] Encounter Date Encounter Type Care Provider Facility Start: 12-28-2024 End: 12-28-2024 Bamboo flowsheet Nadiya Edwin DO Work Phone: [facility] Start: 12-28-2024 End: 12-28-2024 Bamboo flowsheet Nadiya Edwin DO Work Phone: [facility] Start: 12-21-2024 End: 12-21-2024 Refill Jm Reddy TRAVERSE ROD ASSEMBLER-CAR DELIVERER Work Phone: [facility] Comment on above: History of COVID-19; Bronchitis Start: 10-28-2024 End: 10-28-2024 Office outpatient visit 15 minutes Nadiya Edwin DO Work Phone: [facility] Comment on above: Encounter to discuss test results; Hormone disorder; Dyspareunia in female Start: 10-28-2024 End: 10-28-2024 ambulatory NADIYA EDWIN Not Available Start: 10-28-2024 End: 10-28-2024 Bamboo flowsheet Nadiya Edwin DO Work Phone: [facility] Start: 10-28-2024 End: 10-28-2024 Bamboo flowsheet Nadiya Edwin DO Work Phone: [facility] Start: 10-08-2024 ambulatory [facility] Start: 10-07-2024 End: 10-07-2024 Office outpatient visit 25 minutes Jm Reddy TRAVERSE ROD ASSEMBLER-CAR DELIVERER Work Phone: [facility] Comment on above: Muscle weakness (Ruby pritchett Dx); Myalgia; Brain fog; Chronic right shoulder pain; Chronic midline low back pain with right-sided sciatica; History of COVID-19; Bronchitis; Anxiety Start: 10-07-2024 End: 10-07-2024 ambulatory [facility] Start: 10-07-2024 End: 10-07-2024 ambulatory [facility] Start: 09-29-2024 End: 09-29-2024 Bamboo flowsheet Elizabeth ROBBINS Work Phone: [facility] Start: 09-29-2024 End: 09-29-2024 Bamboo flowsheet Elizabeth Boston PA Work Phone: [facility] Start: 09-29-2024 End: 09-29-2024 Office outpatient visit 15 minutes Elizabeth Boston PA Work Phone: [facility] Comment on above: Pelvic pain; PCOS (polycystic ovarian syndrome) Start: 09-29-2024 End: 09-29-2024 ambulatory ELIZABETH BOSTON Not Available Start: 09-07-2024 End: 09-07-2024 [facility] Start: 08-10-2024 End: 08-10-2024 ambulatory NADIYA EDWIN Not Available Start: 08-10-2024 End: 08-10-2024 Office outpatient visit 15 minutes Nadiya Edwin DO Work Phone: [facility] Comment on above: Pelvic pain in femal e; PCOS (polycystic ovarian syndrome) Start: 08-10-2024 End: 08-10-2024 Bamboo flowsheet Nadiya Edwin DO Work Phone: [facility] Start: 08-10-2024 End: 08-10-2024 Bamboo flowsheet Nadiya Edwin DO Work Phone: [facility] Start: 08-07-2024 End: 08-07-2024 Telephone encounter Anne-Marie Shin CNA [facility] Comment on above: Results Start: 08-04-2024 End: 08-04-2024 [facility] Comment on above: Results Start: 07-31-2024 End: 07-31-2024 Refill Jm Reddy TRAVERSE ROD ASSEMBLER-CAR DELIVERER Work Phone: [facility] Comment on above: Chronic midline low back pain with right-sided sciatica Start: 07-28-2024 End: 07-28-2024 ambulatory [facility] Start: 07-14-2024 End: 07-14-2024 ambulatory [facility] Start: 07-07-2024 End: 07-07-2024 Orders Only Jm Reddy TRAVERSE ROD ASSEMBLER-CAR DELIVERER Work Phone: [facility] Comment on above: Nipple discharge (Pr imary Dx) Start: 07-06-2024 End: 07-06-2024 Patient encounter status Jm Reddy TRAVERSE ROD ASSEMBLER-CAR DELIVERER Work Phone: [facility] [facility] Start: 07-06-2024 End: 07-06-2024 Periodic preventive med est patient 18-39 yrs Jm Reddy TRAVERSE ROD ASSEMBLER-CAR DELIVERER [facility] Comment on above: Wellness examination (Primary Dx); Migraine with aura and without status migrainosus, not intractable; Chronic midline low back pain with right-sided sciatica; Nipple discharge; Encounter for screening mammogram for malignant neoplasm of breast; Myalgia Start: 07-06-2024 End: 07-06-2024 ambulatory [facility] Start: 06-30-2024 End: 06-30-2024 Jimena Brady CMA [facility] Start: 06-17-2024 End: 06-17-2024 Office outpatient visit 15 minutes [facility] TRAVERSE ROD ASSEMBLER-CAR DELIVERER Work Phone: [facility] Comment on above: Acute sinusitis, rec urrence not specified, unspecified location (Primary Dx); Anxiety and depression Start: 06-17-2024 End: 06-17-2024 ambulatory [facility] Start: 06-13-2024 End: 06-13-2024 Emergency department patient visit [facility] Start: 06-09-2024 End: 06-09-2024 Bamboo flowsheet Nadiya Cardenas DO Work Phone: [facility] Start: 06-09-2024 End: 06-09-2024 Bamboo flowsheet Nadiya Edwin DO Work Phone: [facility] Start: 06-09-2024 End: 06-09-2024 Office outpatient visit 15 minutes Nadiya Edwin DO Work Phone: [facility] Comment on above: Pelvic pain in femal e; STI (sexually transmitted infection); PCOS (polycystic ovarian syndrome); Hormone disorder Start: 06-09-2024 End: 06-09-2024 ambulatory NADIYAKvng CORONAO Not Available Start: 06-05-2024 End: 06-05-2024 Emergency department patient visit [facility] Start: 06-01-2024 End: 06-01-2024 Telephone encounter Marlen Mishra [facility] Start: 05-08-2024 End: 05-08-2024 ambulatory [facility] Start: 05-08-2024 Encounter for genera l adult medical examination without abnormal findings [facility] Start: 05-08-2024 End: 05-08-2024 ambulatory [facility] Start: 05-08-2024 Encounter for genera l adult medical examination without abnormal findings [facility] Start: 02-03-2024 End: 02-03-2024 Patient encounter procedure Elizabeth ROBBINS Work Phone: [facility] Work Phone: Start: 02-03-2024 End: 02-03-2024 Periodic preventive med est patient 18-39 yrs Elizabeth ROBBINS Work Phone: [facility] Comment on above: Well woman exam with routine gynecological exam Start: 02-03-2024 End: 02-03-2024 ambulatory ELIZABETH BOSTON Not Available Start: 02-03-2024 End: 02-03-2024 Bamboo flowsheet Elizabeth ROBBINS Work Phone: [facility] Start: 02-03-2024 End: 02-11-2024 Bamboo flowsheet Elizabeth ROBBINS Work Phone: [facility] Start: 02-03-2024 End: 02-11-2024 Clinisync Result Encounter Elizabeth ROBBINS Work Phone: [facility] Unsolicited Start: 12-16-2023 End: 12-16-2023 Emergency department patient visit NO PCP NO PCP [facility] Start: 05-31-2023 ambulatory Servando Gilman acility:[facility] Start: 12-29-2019 End: 12-29-2019 Patient encounter procedure NADIYA EDWIN Facility:[facility] Start: 06-11-2019 End: 06-11-2019 Patient encounter procedure NADIYA EDWIN Facility: Procedures Date Procedure Procedure Detail Performing Clinician Start: 10-07-2024 Adult depression screening assessment Jm Reddy TRAVERSE ROD ASSEMBLER-CAR DELIVERER Work Phone: Start: 08-10-2024 Urnls dip stick/tabl et rgnt non-auto w/o micrscp Nadiya Edwin DO Work Phone: Start: 07-06-2024 Adult depression screening assessment Jm Reddy [employer]VERSE ROD ASSEMBLER-[employer] DELIVERER Work Phone: Start: 06-17-2024 Follow-up visit Follow-up GENE REDDY Start: 06-10-2024 Urnls dip stick/tabl et rgnt non-auto w/o micrscp Nadiya Edwin DO Work Phone: Start: 05-08-2024 Adult depression screening assessment Marlen Mishra MELTER OPERATOR Start: 02-03-2024 IGP,APTIMA HPV,AGE GDLN Elizabeth ROBBINS Work Phone: Start: 02-03-2024 Cytp cerv/vag auto t hin layer prep mnl screen Elizabeth ROBBINS Work Phone: Plan of Treatment Date Care Activity Detail Author Start: 10-11-2025 Tobacco Screening Tobacco Screening [facility] Start: 10-07-2025 Adult BMI Screening Adult BMI Screen ing [facility] Start: 10-07-2025 Depression Screening Depression Scre ening [facility] Start: 10-07-2025 Tobacco Screening Tobacco Screening [facility] Start: 07-06-2025 Adult BMI Screening Adult BMI Screen ing [facility] Start: 07-06-2025 Depression Screening Depression Scre ening [facility] Start: 07-06-2025 Tobacco Screening Tobacco Screening [facility] Start: 06-17-2025 Adult BMI Screening Adult BMI Screen ing [facility] Start: 06-17-2025 Tobacco Screening Tobacco Screening [facility] Start: 05-08-2025 Adult BMI Screening Adult BMI Screen ing [facility] Start: 05-08-2025 Depression Screening Depression Scre ening [facility] Start: 05-08-2025 Tobacco Screening Tobacco Screening [facility] Start: 02-08-2025 End: 02-08-2025 Patient encounter procedure [facility] Start: 01-07-2025 End: 01-07-2025 Patient encounter procedure 01/07/2025 10:00 AM EDT Office Visit [facility] [address] [place] [address] [place] [phone] Marck Echeverria, [address] [place] [address], [facility], [place] [address] [facility] Start: 12-21-2024 Influenza vaccination P [facility] Start: 11-30-2024 End: 11-30-2024 Patient encounter procedure 11/30/2024 11:10 AM EDT Office Visit [facility] [address] [place] [address] Nadiya Cardenas, DO [address] [place], [place] [id number] [facility] Start: 10-30-2024 End: 10-30-2024 Patient encounter procedure 10/30/2024 10:00 AM EDT Appointment [facility] [address] [place] [phone] Chronic right shoulder pain; Chronic midline low back pain with right-sided sciatica [facility] Comment on above: Chronic right should er pain; Chronic midline low back pain with right-sided sciatica Start: 10-28-2024 End: 10-28-2024 Patient encounter procedure [facility] Comment on above: Arrived Start: 10-07-2024 End: 10-07-2025 MR Shoulder - right WO contrast MR shoulder right without contrast Imaging Routine Chronic right shoulder pain Expected: 10/07/2024, Expires: 10/07/2025 [facility] Work Phone: Comment on above: Expected: 10/07/2024 , Expires: 10/07/2025 Start: 10-07-2024 End: 10-07-2024 Patient encounter procedure 10/07/2024 10:40 AM EDT [facility] [address] [place] [phone] Jm Reddy APRN-KIMI [address] [place] [phone] [facility] Start: 09-29-2024 End: 09-29-2025 DHEA DHEA Lab Routine PCOS (polycystic ovarian syndrome) Expected: 09/29/2024 (Approximate), Expires: 09/29/2025 [facility] Comment on above: Expected: 09/29/2024 (Approximate), Expires: 09/29/2025 Start: 09-29-2024 End: 09-29-2024 Patient encounter procedure 09/29/2024 2:00 PM EDT Office Visit [facility] [address] [facility] [place] [phone] Elizabeth Boston PA [address] [place] [address] Arrived [facility] Comment on above: Arrived Start: 09-29-2024 End: 09-29-2025 US Pelvis US Pelvis w/ TV Imaging Routine PCOS (polycystic ovarian syndrome) Expected: 09/29/2024, Expires: 09/29/2025 [facility] Comment on above: Expected: 09/29/2024 , Expires: 09/29/2025 Start: 08-10-2024 End: 08-10-2024 Patient encounter procedure 08/10/2024 2:20 PM EDT Office Visit [facility] [address] [place] [address] Nadiya Cardenas DO [address] [facility] [place] [address] [facility] Start: 07-28-2024 End: 07-28-2024 Patient encounter procedure [facility] - Mammography/DEXA Imaging Start: 07-16-2024 End: 07-16-2024 Patient encounter procedure 07/16/2024 9:30 AM EDT Appointment [facility] [address] [place] [phone] Chronic midline low back pain with right-sided sciatica [facility] Comment on above: Chronic midline low back pain with right-sided sciatica Start: 07-14-2024 End: 07-14-2024 Patient encounter procedure 07/14/2024 10:30 AM EDT Appointment [facility] - Ultrasound [address] [place] [phone] [facility] - Ultrasound Start: 07-07-2024 End: 07-07-2025 MG Breast Diagnostic Mammography diagnostic bilateral with CAD Imaging Routine Nipple discharge Expected: 07/07/2024, Expires: 07/07/2025 [facility] Work Phone: Comment on above: Expected: 07/07/2024 , Expires: 07/07/2025 Start: 07-06-2024 End: 07-06-2025 DBT Breast - bilateral screening Mammography screening bilateral with CAD Imaging Routine Wellness examination Nipple discharge Encounter for screening mammogram for malignant neoplasm of breast Expected: 07/06/2024, Expires: 07/06/2025 [facility] Comment on above: Expected: 07/06/2024 , Expires: 07/06/2025 Start: 07-06-2024 End: 07-06-2025 XR Lumbar spine 2 or 3 Views X-ray spine lumbar 2 or 3 views Imaging Routine Chronic midline low back pain with right-sided sciatica Expected: 07/06/2024, Expires: 07/06/2025 [facility] Work Phone: Comment on above: Expected: 07/06/2024 , Expires: 07/06/2025 Start: 07-06-2024 End: 07-06-2024 Patient encounter procedure 07/06/2024 11:00 AM EDT Office Visit [facility] [address] [place] [phone] Jm Reddy, TRAVERSE ROD ASSEMBLER-CAR DELIVERER [address] [place], [place] [address] [facility] Start: 06-09-2024 End: 06-09-2025 DHEA DHEA Lab Routine PCOS (polycystic ovarian syndrome) Expected: 06/09/2024 (Approximate), Expires: 06/09/2025 [facility] Comment on above: Expected: 06/09/2024 (Approximate), Expires: 06/09/2025 Start: 06-09-2024 End: 06-09-2025 SURESWAB(R) ADVANCED VAGINITIS PLUS, TMA SURESWAB(R) ADVANCED VAGINITIS PLUS, TMA Pathology and Cytology Routine Pelvic pain in female Expected: 06/09/2024 (Approximate), Expires: 06/09/2025 [facility] Work Phone: Comment on above: Expected: 06/09/2024 (Approximate), Expires: 06/09/2025 Start: 06-09-2024 End: 06-09-2025 US Pelvis US Pelvis w/ TV Imaging Routine Pelvic pain in female Expected: 06/09/2024 (Approximate), Expires: 06/09/2025 [facility] Comment on above: Expected: 06/09/2024 (Approximate), Expires: 06/09/2025 Start: 06-09-2024 End: 06-09-2024 Patient encounter procedure 06/09/2024 1:50 PM EST Office Visit [facility] [address] [place] [phone] Nadiya Cardenas DO [address] [facility] [place], [place] [phone] Arrived [facility] Comment on above: Arrived Start: 02-03-2024 End: 02-03-2024 Patient encounter procedure 02/03/2024 3:00 PM EDT Office Visit [facility] [address] [place] [address] Elizabeth Boston PA [address] [facility] [place], [place] [id number] Arrived [facility] Comment on above: Arrived Start: 12-22-2023 Influenza vaccination N [facility] Start: 2009 DTaP,Tdap and Td Vaccines (1 - Tdap) DTaP,Tdap and Td Vaccines (1 - Tdap) [facility] Start: 2008 Adult BMI Follow Up Plan Adult BMI Follow Up Plan [facility] CBC W Auto Different ial panel - Blood CBC and differential Lab Routine PCOS (polycystic ovarian syndrome) Ordered: 06/09/2024 [facility] Comment on above: Ordered: 06/09/2024 CBC W Auto Different ial panel - Blood CBC and differential Lab Routine PCOS (polycystic ovarian syndrome) Ordered: 09/29/2024 [facility] Comment on above: Ordered: 09/29/2024 CHLAMYDIA TRACHOMATI S (GENITO/STI) CHLAMYDIA TRACHOMATIS (GENITO/STI) Lab Routine Pelvic pain in female Ordered: 06/09/2024 [facility] Comment on above: Ordered: 06/09/2024 Cytology Cervical or vaginal smear or scraping study Pap Smear Pathology and Cytology Routine Well woman exam with routine gynecological exam Ordered: 02/03/2024 [facility] Work Phone: Comment on above: Ordered: 02/03/2024 DHEA-sulfate DHEA-sulfate Lab Routine PCOS (polycystic ovarian syndrome) Ordered: 06/09/2024 [facility] Comment on above: Ordered: 06/09/2024 DHEA-sulfate DHEA-sulfate Lab Routine PCOS (polycystic ovarian syndrome) Ordered: 09/29/2024 [facility] Comment on above: Ordered: 09/29/2024 Estradiol Estradiol Lab Ro utine Hormone disorder Ordered: 06/09/2024 [facility] Comment on above: Ordered: 06/09/2024 Follicle stimulating hormone Follicle stimulating hormone Lab Routine PCOS (polycystic ovarian syndrome) Ordered: 06/09/2024 [facility] Comment on above: Ordered: 06/09/2024 Follicle stimulating hormone Follicle stimulating hormone Lab Routine PCOS (polycystic ovarian syndrome) Ordered: 09/29/2024 [facility] Comment on above: Ordered: 09/29/2024 hCG, quantitative, hCG, quantitative, Lab Routine PCOS (polycystic ovarian syndrome) Ordered: 06/09/2024 [facility] Comment on above: Ordered: 06/09/2024 hCG, quantitative, hCG, quantitative, Lab Routine PCOS (polycystic ovarian syndrome) Ordered: 09/29/2024 [facility] Work Phone: Comment on above: Ordered: 09/29/2024 Hemoglobin A1c/Hemoglobin.total in Blood Hemoglobin A1c Lab Routine Hormone disorder Ordered: 06/09/2024 [facility] Comment on above: Ordered: 06/09/2024 Hemoglobin A1c/Hemoglobin.total in Blood Hemoglobin A1c Lab Routine Pelvic pain PCOS (polycystic ovarian syndrome) Ordered: 09/29/2024 [facility] Comment on above: Ordered: 09/29/2024 Human papilloma viru s DNA [Presence] in Unspecified specimen by Probe with amplification HPV DNA probe, amplified Microbiology Routine Well woman exam with routine gynecological exam Ordered: 02/03/2024 [facility] Comment on above: Ordered: 02/03/2024 Luteinizing hormone Luteinizing hormone Lab Routine PCOS (polycystic ovarian syndrome) Ordered: 06/09/2024 [facility] Comment on above: Ordered: 06/09/2024 Luteinizing hormone Luteinizing hormone Lab Routine PCOS (polycystic ovarian syndrome) Ordered: 09/29/2024 [facility] Comment on above: Ordered: 09/29/2024 Neisseria gonorrhoea e DNA [Presence] in Unspecified specimen by ANA with probe detection Neisseria gonorrhea DNA probe, direct Lab Routine Pelvic pain in female Ordered: 06/09/2024 [facility] Comment on above: Ordered: 06/09/2024 Progesterone Progesterone Lab Routine Hormone disorder Ordered: 06/09/2024 [facility] Comment on above: Ordered: 06/09/2024 Thyrotropin [Units/volume] in Serum or Plasma TSH Lab Routine PCOS (polycystic ovarian syndrome) Ordered: 06/09/2024 [facility] Comment on above: Ordered: 06/09/2024 Thyrotropin [Units/volume] in Serum or Plasma TSH Lab Routine PCOS (polycystic ovarian syndrome) Ordered: 09/29/2024 [facility] Comment on above: Ordered: 09/29/2024 Thyroxine (T4) free [Mass/volume] in Serum or Plasma T4, free Lab Routine PCOS (polycystic ovarian syndrome) Ordered: 06/09/2024 [facility] Comment on above: Ordered: 06/09/2024 Thyroxine (T4) free [Mass/volume] in Serum or Plasma T4, free Lab Routine PCOS (polycystic ovarian syndrome) Ordered: 09/29/2024 [facility] Comment on above: Ordered: 09/29/2024 Payers Date Payer Category Payer Medicaid (Managed Care) [employer] [id number] 2023 Self-pay 2021 Medicaid MEDICAID [facility] [id number] 2019 Medicaid [place] [employer] [id number] 1990 Unknown [id number] 2.16.840.1.200368.3.579.2. 593 1990 Unknown [id number] 2.16.840.1.516163.3.579.2. 593 1990 Unknown [id number] 2.16.840.1.752615.3.579.2. 1286 1990 Unknown [id number] 2.16.840.1.501878.3.579.2. 1286 1990 Unknown [id number] 2.16.840.1.219376.3.579.2. 1286 1990 Unknown [id number] 2.16.840.1.839782.3.579.2. 1286 1990 Unknown [id number] 2.16.840.1.508686.3.579.2. 1286 1990 Unknown [id number] 2.16.840.1.433017.3.579.2. 1259 1990 Unknown [id number] 2.16.840.1.000525.3.579.2. 1259 1990 Unknown [id number] 2.16.840.1.437607.3.579.2. 1259 1990 Unknown [id number] 2.16.840.1.178863.3.579.2. 1259 1990 Unknown [id number] 2.16.840.1.622095.3.579.2. 1259 1990 Unknown [id number] 2.16.840.1.752400.3.579.2. 1286 1990 Unknown [id number] 2.16.840.1.694976.3.579.2. 1286 1990 Unknown [id number] 2.16.840.1.893770.3.579.2. 1285 1990 Unknown [id number] 2.16.840.1.950682.3.579.2. 6 1990 Unknown [id number] 2.16.840.1.066414.3.579.2. 1285 1990 Unknown [id number] 2.16.840.1.266136.3.579.2. 1286 1990 Unknown [id number] 2.16.840.1.483661.3.579.2. 1285 1990 Unknown [id number] 2.16.840.1.169059.3.579.2. 6 1990 Unknown [id number] 2.16.840.1.505996.3.579.2. 1285 1990 Unknown [id number] 2.16.840.1.974432.3.579.2. 1286 1959 Unknown [id number] Social History Date Type Detail Facility Start: 11-29-2022 Tobacco smoking status COIS Smokes tobacco daily [facility] Start: 06-17-2009 History of tobacco use Cigarette Smoker [facility] Start: 07-01-2023 End: 10-28-2024 Alcoholic beverage intake Lifetime non-drinker (finding) [facility] Start: 06-27-2023 End: 02-03-2024 History of Social function [facility] Start: 06-27-2023 End: 02-03-2024 Tobacco use panel [facility] Start: 10-10-2022 Alcohol Comment Caffeine intake: 2-3 cups per day [facility] Start: 1990 Sex assigned at Not on file [facility] Start: 05-08-2024 End: 06-17-2024 Tobacco smoking status NHIS Ex-smoker [facility] Start: 06-17-2009 History of tobacco use Current smoker [facility] Start: 05-08-2024 End: 06-17-2024 Tobacco use and exposure Smokeless tobacco non-user [facility] Start: 05-08-2024 End: 10-11-2024 Alcoholic beverage intake Current drinker of alcohol (finding) [facility] Adolescent depressio n screening assessment 16 [facility] Start: 11-21-2022 Alcohol Comment occasional [facility] Start: 11-25-2014 Sex Female (finding) [facility] Start: 1990 Sex assigned at Female [facility] Start: 10-30-2024 Gender identity Identifies as female gender (finding) [facility] Start: 10-30-2024 Sexual orientation Heterosexual (finding) [facility] Clinical Notes 02-03-2024 to 10-28-2024 Torri Encinas LPN - 10/28/2024 2:40 PM Maxine Reddy APRN-CAR DELIVERER - 10/07/2024 10:40 AM ROSENDO Irving - 09/29/2024 2:00 PM Cassidy Gross LPN - 08/10/2024 2:20 PM EDT Note Date & Type Note Facility 10-28-2024 History of Presen t illness Narrative Reason for Appointment: Patient ID: Emma Valle is a 34 y.o. female who presents for Results Patient presents today for Acute Visit. and Consult appointment. MEDICATIONS Current Outpatient Medications Medication Instructions albuterol HFA 90 mcg/act inhaler INHALE 2 PUFFS BY MOUTH INTO THE LUNGS EVERY 6 HOURS NEEDED FOR WHEEZING amoxicillin-clavulanate (Augmentin) 875-125 MG tablet TAKE 1 TABLET BY MOUTH EVERY 12 HOURS UNTIL GONE celecoxib (CELEBREX) 100 mg, 2 times daily cyclobenzaprine (Flexeril) 5 MG tablet cyclobenzaprine (FLEXERIL) 10 mg, 2 times daily PRN estradiol (ESTRACE) 0.5 mg, Oral, Daily, Take 1 tablet by mouth for 30 days gabapentin (NEURONTIN) 100 mg, 3 times daily metFORMIN XR (GLUCOPHAGE-XR) 500 mg, Oral, Daily with evening meal, Do not crush, chew, or split. pantoprazole (PROTONIX) 40 mg, Daily RT ALLERGIES Allergies Allergen Reactions Penicillin G Other Yeast infection PROBLEMS Active Ambulatory Problems Diagnosis Date Noted Pelvic pain in female 08/10/2024 PCOS (polycystic ovarian syndrome) 08/10/2024 Resolved Ambulatory Problems Diagnosis Date Noted No Resolved Ambulatory Problems No Additional Past Medical History HISTORY PAST MEDICAL HISTORY SOCIAL HISTORY History reviewed. No pertinent past medical history. Social History Tobacco Use Smoking status: Every Day Current packs/day: 1.00 Types: Cigarettes Smokeless tobacco: Not on file Substance Use Topics Alcohol use: Never Comment: Caffeine intake: 2-3 cups per day Drug use: Never FAMILY HISTORY Family History Problem Relation Name Age of Onset Diabetes Father Hypertension Father Heart disease Paternal Grandmother Stroke Paternal Grandmother Heart disease Paternal Grandfather Cancer Paternal Grandfather SURGICAL HISTORY Past Surgical History: Procedure Laterality Date HYSTERECTOMY 2016 OTHER SURGICAL HISTORY Ablation PAP SMEAR 12/29/2019 negative PELVIC LAPAROSCOPY PELVIC LAPAROSCOPY 12/28/2022 dx with lysis of omental adhesions to the anterior wall TUBAL LIGATION REVIEW OF SYSTEMS Review of Systems: Review of Systems Constitutional: Negative. Positive for hot flashes. HENT: Negative. Eyes: Negative. Respiratory: Negative. Cardiovascular: Negative. Gastrointestinal: Negative. Genitourinary: Negative. Musculoskeletal: Negative. Skin: Negative. Neurological: Negative. All other systems reviewed and are negative. Hematological: Negative. Allergic/Immunologic: Negative. OBJECTIVE Objective: Physical Exam Constitutional: Appearance: Normal appearance. She is well-developed. Cardiovascular: Rate and Rhythm: Normal rate and regular rhythm. Pulmonary: Effort: Pulmonary effort is normal. Breath sounds: Normal breath sounds. Abdominal: General: Bowel sounds are normal. There is no distension. Palpations: Abdomen is soft. Tenderness: There is no abdominal tenderness. There is no guarding or rebound. Musculoskeletal: General: No swelling. Normal range of motion. Right lower leg: No edema. Left lower leg: No edema. Neurological: Mental Status: She is alert and oriented to person, place, and time. Skin: General: Skin is warm and dry. Psychiatric: Mood and Affect: Mood normal. Behavior: Behavior normal. Vitals and nursing note reviewed. Exam conducted with a warehouser present. Vitals: Estimated body mass index is 32.56 kg/m as calculated from the following: Height as of 01/10/23: 4' 10 . Weight as of this encounter: 155 lb 12.8 oz. BP: 118/78 No LMP recorded. Patient has had a hysterectomy. ASSESSMENT & PLAN ICD-10-CM 1. Encounter to discuss test results Z71.2 2. Hormone disorder E34.9 Pt presents to review labs and ultrasound orders. Discussed adding estrace cream. Increase estrace oral to 1 mg. Discussed removing one ovary. Rx for doxycycline faxed to pharmacy. Pt to return in 4 weeks for follow up. Documented by Torri Encinas LPN on behalf of: Nadiya Cardenas DO documented in this encounter [facility] 10-07-2024 History of Presen t illness Narrative Subjective Patient ID: Emma Valle is a 34 y.o. female. ZOILA Jerez presents to the office for follow up on chronic back pain. She reports she continues with bilateral hip pain and achiness that goes from bilateral hips down the legs to the ankles. She reports she has pain to bilateral hips, knees, and ankles. She describes the back pain as going across the lower back. She also reports having a sciatica sensation as well. X-ray ordered of lumbar spine to further evaluate lower back pain. Referral placed to physical therapy for chronic lower back pain with right-sided sciatica. Discussed possible need for further imaging however we will wait till she completes physical therapy. However, I do not see that lumbar x-ray was completed or that she has followed up with physical therapy. She reports she did not complete xray as she is following with disability and will have imaging completed with them. She reports she never rescheduled her PT after having to reschedule. She also reported ongoing right shoulder pain that is causing burning sensation. X-ray of right shoulder from 10/13/2023 was negative. She reports she has been having this pain intermittently for 2 years. I started her on gabapentin low dosage 100 mg 3 times a day for the burning sensation to bilateral legs in the sharp pain to left side of head. However she reports this made her drowsy and is only taking at HS. She does feel that this makes pain a little more tolerable. I also added low dose of muscle relaxer at bedtime to see if this helps with muscle pain, she reports 5 mg did not seem to be enough and admits she started taking 2 tablets. I also increased amitriptyline to 50 mg at bedtime for combination headaches, sleep, and generalized pain. However she reports she stopped amitripatyline as this caused her to have increased night terrors. I switched meloxicam to Celebrex and see if this helps prevent GI upset. This does help, she reports she is no longer having issues with acid reflux. Additionally, she reports she is having Increased brain fog. She is now taking metformin and estradiol with Dr. Cardenas. She reports she does not feel that it is related to gabapentin, as this was occurring prior. She also reports she is having muscle weakness to her hands. And if she laughs too hard her muscles get weak and she will fall, get starry vision, she will get starry vision This has been intermittent for the last 2 years, but has been worse the last 3-4 months. Also reports feeling increased shortness and lightheaded. Chest discomfort intermittently. Not associated to exertion as she typically is resting when this chest discomfort occurs. She admits to increased stress. When this chest pain occurs, It lasts a while, it does feel muscular. The following portions of the patient's history were reviewed and updated as appropriate: allergies, current medications, past family history, past medical history, past social history, past surgical history, problem list, and medication reconciliation was completed including current medication and post discharge medication. Review of Systems Constitutional: Positive for fatigue. Negative for chills, diaphoresis, fever and unexpected weight change. HENT: Negative. Respiratory: Negative for cough, chest tightness, shortness of breath and wheezing. Cardiovascular: Negative. Gastrointestinal: Negative. Musculoskeletal: Positive for arthralgias, back pain and myalgias. Skin: Negative. Neurological: Positive for light-headedness, numbness (Hands and feet) and headaches. Psychiatric/Behavioral: Positive for sleep disturbance. Negative for self-injury and suicidal ideas. The patient is nervous/anxious. Brain fog Objective Physical Exam Vitals and nursing note reviewed. Constitutional: General: She is not in acute distress. Appearance: Normal appearance. She is well-developed. She is not ill-appearing. HENT: Head: Normocephalic and atraumatic. Right Ear: External ear normal. Left Ear: External ear normal. Nose: Nose normal. Mouth/Throat: Mouth: Mucous membranes are moist. Pharynx: Oropharynx is clear. Eyes: Extraocular Movements: Extraocular movements intact. Pupils: Pupils are equal, round, and reactive to light. Neck: Vascular: No carotid bruit. Cardiovascular: Rate and Rhythm: Normal rate and regular rhythm. Pulses: Normal pulses. Heart sounds: Normal heart sounds. No murmur heard. Pulmonary: Effort: Pulmonary effort is normal. No respiratory distress. Breath sounds: Normal breath sounds. No wheezing, rhonchi or rales. Chest: Chest wall: No tenderness. Abdominal: General: Bowel sounds are normal. There is no distension. Palpations: Abdomen is soft. There is no mass. Tenderness: There is no abdominal tenderness. There is no guarding or rebound. Hernia: No hernia is present. Musculoskeletal: Cervical back: Normal range of motion and neck supple. Bony tenderness present. No rigidity or tenderness. Thoracic back: Tenderness and bony tenderness present. Lumbar back: Tenderness and bony tenderness present. Right lower leg: No edema. Left lower leg: No edema. Lymphadenopathy: Cervical: No cervical adenopathy. Skin: General: Skin is warm and dry. Capillary Refill: Capillary refill takes less than 2 seconds. Findings: No rash. Neurological: General: No focal deficit present. Mental Status: She is alert and oriented to person, place, and time. Motor: No weakness. Psychiatric: Mood and Affect: Mood normal. Behavior: Behavior normal. Assessment/Plan The OARRS/MAPPS database was reviewed today and found to be appropriate. No indication of medication diversion, or non compliance. Continue gabapentin at HS. Increase flexeril to 10 mg at HS. Continue celebrex, ensure to take with food and drink plenty of fluids. Continue acid reflux medication. Refill inhaler for intermittent shortness of breath. Refill hydroxyzine PRN for anxiety. Referral placed back to PT for chronic back, neck, and shoulder pain. Ensure to follow all imagning and recommendations from disability. Order for MRI of shoulder placed. Referral to neurology for increased brain fog and muscle weakness. Follow up in 3 months for chronic pains. Emma was seen today for follow-up. Diagnoses and all orders for this visit: Muscle weakness - Ambulatory referral to Neurology; Future Myalgia - cyclobenzaprine (FLEXERIL) 10 mg tablet; Take 1 tablet (10 mg total) by mouth nightly as needed for muscle spasms. Brain fog - Ambulatory referral to Neurology; Future Chronic right shoulder pain - MR shoulder right without contrast; Future - Ambulatory referral to Physical Therapy; Future Chronic midline low back pain with right-sided sciatica - Ambulatory referral to Physical Therapy; Future - gabapentin (NEURONTIN) 100 mg capsule; Take 1 capsule (100 mg total) by mouth once daily at bedtime. History of COVID-19 - albuterol (PROVENTIL HFA;VENTOLIN HFA) 90 mcg/actuation inhaler; Inhale 2 puffs every 6 (six) hours as needed for wheezing or shortness of breath. Bronchitis - albuterol (PROVENTIL HFA;VENTOLIN HFA) 90 mcg/actuation inhaler; Inhale 2 puffs every 6 (six) hours as needed for wheezing or shortness of breath. Anxiety - hydrOXYzine (ATARAX) 25 mg tablet; Take 1 tablet (25 mg total) by mouth every 6 (six) hours as needed for anxiety. Other orders - celecoxib (CeleBREX) 100 mg capsule; Take 1 capsule (100 mg total) by mouth in the morning and 1 capsule (100 mg total) before bedtime. FELI Raymond 10/11/24 1330 documented in this encounter [facility] 09-29-2024 History of Presen t illness Narrative Reason for Appointment: Patient ID: Emma Valle is a 34 y.o. female who presents for Pelvic Pain Patient presents today for Acute Visit. MEDICATIONS Current Outpatient Medications Medication Instructions albuterol HFA 90 mcg/act inhaler INHALE 2 PUFFS BY MOUTH INTO THE LUNGS EVERY 6 HOURS NEEDED FOR WHEEZING celecoxib (CELEBREX) 100 mg, 2 times daily cyclobenzaprine (Flexeril) 5 MG tablet cyclobenzaprine (FLEXERIL) 10 mg, 2 times daily PRN estradiol (ESTRACE) 0.5 mg, Oral, Daily, Take 1 tablet by mouth for 30 days gabapentin (NEURONTIN) 100 mg, 3 times daily metFORMIN XR (GLUCOPHAGE-XR) 500 mg, Oral, Daily with evening meal, Do not crush, chew, or split. pantoprazole (PROTONIX) 40 mg, Daily RT ALLERGIES Allergies Allergen Reactions Penicillin G Other Yeast infection PROBLEMS Active Ambulatory Problems Diagnosis Date Noted Pelvic pain in female 08/10/2024 PCOS (polycystic ovarian syndrome) 08/10/2024 Resolved Ambulatory Problems Diagnosis Date Noted No Resolved Ambulatory Problems No Additional Past Medical History HISTORY PAST MEDICAL HISTORY SOCIAL HISTORY History reviewed. No pertinent past medical history. Social History Tobacco Use Smoking status: Every Day Current packs/day: 1.00 Types: Cigarettes Smokeless tobacco: Not on file Substance Use Topics Alcohol use: Never Comment: Caffeine intake: 2-3 cups per day Drug use: Never FAMILY HISTORY Family History Problem Relation Name Age of Onset Diabetes Father Hypertension Father Heart disease Paternal Grandmother Stroke Paternal Grandmother Heart disease Paternal Grandfather Cancer Paternal Grandfather SURGICAL HISTORY Past Surgical History: Procedure Laterality Date HYSTERECTOMY 2016 OTHER SURGICAL HISTORY Ablation PAP SMEAR 12/29/2019 negative PELVIC LAPAROSCOPY PELVIC LAPAROSCOPY 12/28/2022 dx with lysis of omental adhesions to the anterior wall TUBAL LIGATION REVIEW OF SYSTEMS Review of Systems: Review of Systems Constitutional: Negative. HENT: Negative. Eyes: Negative. Respiratory: Negative. Cardiovascular: Negative. Gastrointestinal: Negative. Genitourinary: Negative. Musculoskeletal: Negative. Skin: Negative. Neurological: Negative. All other systems reviewed and are negative. Hematological: Negative. Endocrine: Negative. Allergic/Immunologic: Negative. OBJECTIVE Objective: Physical Exam Constitutional: Appearance: Normal appearance. She is normal weight. HENT: Head: Normocephalic. Cardiovascular: Rate and Rhythm: Normal rate. Pulses: Normal pulses. Pulmonary: Effort: Pulmonary effort is normal. Breath sounds: Normal breath sounds. Abdominal: Palpations: Abdomen is soft. Tenderness: There is abdominal tenderness. Comments: Left lower quadrant, no rebound or guading Musculoskeletal: General: Normal range of motion. Neurological: General: No focal deficit present. Mental Status: She is alert and oriented to person, place, and time. Psychiatric: Mood and Affect: Mood normal. Behavior: Behavior normal. Thought Content: Thought content normal. Judgment: Judgment normal. Vitals and nursing note reviewed. Vitals: Estimated body mass index is 32.27 kg/m as calculated from the following: Height as of 01/10/23: 4' 10 . Weight as of this encounter: 154 lb 6.4 oz. BP: 114/74 No LMP recorded. Patient has had a hysterectomy. ASSESSMENT & PLAN ICD-10-CM 1. Pelvic pain R10.2 Hemoglobin A1c 2. PCOS (polycystic ovarian syndrome) E28.2 metFORMIN XR (Glucophage-XR) 500 MG 24 hr tablet hCG, quantitative, TSH T4, free CBC and differential Follicle stimulating hormone Luteinizing hormone Hemoglobin A1c DHEA-sulfate DHEA US Pelvis w/ TV DHEA Patient present with llq abdominal pain for 2 weeks, pt states she has history of adhesions with diagnostic lap in past . Been over 2 years since previous diagnostic with lysis of adhesions. We will order labs and ultrasound to rule out cyst. Previous labs and us reviewed. Patient will schedule up for follow up with edwin to discuss plan Documented by ROSENDO Piper on behalf of: ROSENDO Piper documented in this encounter [facility] 08-10-2024 History of Presen t illness Narrative Reason for Appointment: Patient ID: Emma Valle is a 33 y.o. female who presents for Pelvic Pain and Polycystic Ovary Syndrome Patient presents today for Follow up appointment to discuss results. MEDICATIONS Current Outpatient Medications Medication Instructions albuterol HFA 90 mcg/act inhaler INHALE 2 PUFFS BY MOUTH INTO THE LUNGS EVERY 6 HOURS NEEDED FOR WHEEZING celecoxib (CELEBREX) 100 mg, 2 times daily cyclobenzaprine (FLEXERIL) 10 mg, 2 times daily PRN estradiol (ESTRACE) 0.5 mg, Oral, Daily, Take 1 tablet by mouth for 30 days gabapentin (NEURONTIN) 100 mg, 3 times daily ALLERGIES Allergies Allergen Reactions Penicillin G Other Yeast infection PROBLEMS Active Ambulatory Problems Diagnosis Date Noted No Active Ambulatory Problems Resolved Ambulatory Problems Diagnosis Date Noted No Resolved Ambulatory Problems No Additional Past Medical History HISTORY PAST MEDICAL HISTORY SOCIAL HISTORY History reviewed. No pertinent past medical history. Social History Tobacco Use Smoking status: Every Day Current packs/day: 1.00 Types: Cigarettes Smokeless tobacco: Not on file Substance Use Topics Alcohol use: Never Comment: Caffeine intake: 2-3 cups per day Drug use: Never FAMILY HISTORY Family History Problem Relation Name Age of Onset Diabetes Father Hypertension Father Heart disease Paternal Grandmother Stroke Paternal Grandmother Heart disease Paternal Grandfather Cancer Paternal Grandfather SURGICAL HISTORY Past Surgical History: Procedure Laterality Date HYSTERECTOMY 2017 OTHER SURGICAL HISTORY Ablation PAP SMEAR 12/29/2019 negative PELVIC LAPAROSCOPY PELVIC LAPAROSCOPY 12/28/2022 dx with lysis of omental adhesions to the anterior wall TUBAL LIGATION REVIEW OF SYSTEMS Review of Systems: Review of Systems Constitutional: Negative. HENT: Negative. Eyes: Negative. Respiratory: Negative. Cardiovascular: Negative. Gastrointestinal: Negative. Genitourinary: Negative. Musculoskeletal: Negative. Skin: Negative. Neurological: Negative. All other systems reviewed and are negative. Hematological: Negative. Endocrine: Negative. Allergic/Immunologic: Negative. OBJECTIVE Objective: Physical Exam Constitutional: Appearance: Normal appearance. She is well-developed. Cardiovascular: Rate and Rhythm: Normal rate and regular rhythm. Pulmonary: Effort: Pulmonary effort is normal. Breath sounds: Normal breath sounds. Abdominal: General: Bowel sounds are normal. There is no distension. Palpations: Abdomen is soft. Tenderness: There is no abdominal tenderness. There is no guarding or rebound. Musculoskeletal: General: No swelling. Normal range of motion. Right lower leg: No edema. Left lower leg: No edema. Neurological: Mental Status: She is alert and oriented to person, place, and time. Skin: General: Skin is warm and dry. Psychiatric: Mood and Affect: Mood normal. Behavior: Behavior normal. Vitals and nursing note reviewed. Exam conducted with a warehouser present. Vitals: Estimated body mass index is 32.69 kg/m as calculated from the following: Height as of 01/10/23: 4' 10 . Weight as of this encounter: 156 lb 6.4 oz. BP: 120/70 No LMP recorded. Patient has had a hysterectomy. ASSESSMENT & PLAN ICD-10-CM 1. Pelvic pain in female R10.2 POCT urinalysis dipstick manually resulted CANCELED: POCT , urine manually resulted 2. PCOS (polycystic ovarian syndrome) E28.2 POCT urinalysis dipstick manually resulted CANCELED: POCT , urine manually resulted Patient presents today to discuss results. PVU and also stated that she is not currently on Metformin. Discuss benefits of medication with patient and patient is agreeable to start taking Metformin. Metformin will be sent to [facility] in [place]. Patient had complaints of increased fatigue. Patient to reach out to office with any concerns/ questions. Documented by Caroline Gross LPN on behalf of: Nadiya Cardenas DO documented in this encounter [facility] 08-07-2024 Miscellaneous Notes Formattin g of this note might be different from the original. Spoke to Emma. She verbalized understanding of Mammogram results. documented in this encounter [facility] 08-07-2024 Telephone encount er Note Spoke to Emma. She verbalized understanding of Mammogram results. [facility] 08-04-2024 Miscellaneous Notes Formattin g of this note might be different from the original. ----- Message from FELI Raymond sent at 07/31/2024 11:24 AM EDT ----- Please let her know mammogram is negative. No concern for malignancy. Attempted to call patient with no answer. Left voicemail to call office. documented in this encounter [facility] 08-04-2024 Telephone encount er Note ----- Message from FELI Raymond sent at 07/31/2024 11:24 AM EDT ----- Please let her know mammogram is negative. No concern for malignancy. [facility] 08-04-2024 Telephone encount er Note Attempted to call patient with no answer. Left voicemail to call office. [facility] 07-07-2024 Miscellaneous Notes Formattin g of this note might be different from the original. Zenaida from [facility] Scheduling stating that are ne mammogram order due to patient stating she is having discharge from [facility]. They are requesting a mammogram diagnostic bilateral all inclusive. Please advise? New order placed documented in this encounter [facility] 07-07-2024 Telephone encount er Note Zenaida from [facility] Scheduling stating that are ne mammogram order due to patient stating she is having discharge from [facility]. They are requesting a mammogram diagnostic bilateral all inclusive. Please advise? [facility] 07-07-2024 Telephone encount er Note New order placed [facility] 07-06-2024 History of Presen t illness Narrative Subjective Patient ID: Emma Valle is a 33 y.o. female. ZOILA Jerez presents to the office for wellness. We started amitriptyline at last visit for prophylaxis of combination headache, generalized body aches, and sleep. I also started her on meloxicam for chronic generalized arthralgias. I ordered BECKA, sed rate, CRP, and rheumatoid factor for chronic arthralgias and fatigue, sed rate was elevated however the rest of the labs were negative. Depression score 9 today, denies SI. She is not sure if amitriptyline is working or not as she still can not sleep. She admits she has not had a migraine in in a couple of months but she it has been having this left-sided head pain that is stabbing. She reports the pain is a 10/10 and it affects her eye to the left side, she reports she can not open the eye due to the pain. She reports this sharp pain to her head has been occurring intermittently for the last 5 days. She reports she continues with bilateral hip pain and achiness that goes from bilateral hips down the legs to the ankles. She reports these arthralgic pains occur all the time bilateral hips knees and ankles. She reports she feels that her ankles are swollen. She also reports she has a burning sensation to her bilateral hips and thighs. She also reports she has chronic low back pain that goes across the back but seems to be worse on the right. Lower side she reports it feels like a pressure sensation in the sciatica area. She also reports ongoing right shoulder pain. She reports she feels like her right shoulder is burning. She admits to some weakness in that right arm. She reports continued all over body aches and generalized body pain. Reports she is very shaky, reports low appetite. She has been trying to increase her fluid intake, but admits she has no appetite and has not been drinking as much. Continues with occasional nipple discharge and would like order for mammogram. The following portions of the patient's history were reviewed and updated as appropriate: allergies, current medications, past family history, past medical history, past social history, past surgical history, problem list, and medication reconciliation was completed including current medication and post discharge medication. Review of Systems Constitutional: Positive for fatigue. Negative for chills, diaphoresis, fever and unexpected weight change. HENT: Negative. Respiratory: Negative for cough, chest tightness, shortness of breath and wheezing. Cardiovascular: Negative. Gastrointestinal: Negative for abdominal pain and blood in stool. Genitourinary: Negative. Musculoskeletal: Positive for arthralgias (shoulder pain), back pain, gait problem and myalgias. Skin: Negative. Neurological: Positive for numbness (Hands and feet) and headaches. Psychiatric/Behavioral: Positive for sleep disturbance. Negative for self-injury and suicidal ideas. The patient is nervous/anxious. Objective Physical Exam Vitals and nursing note reviewed. Constitutional: General: She is not in acute distress. Appearance: Normal appearance. She is well-developed. She is not ill-appearing. HENT: Head: Normocephalic and atraumatic. Right Ear: External ear normal. Left Ear: External ear normal. Nose: Nose normal. Mouth/Throat: Mouth: Mucous membranes are moist. Pharynx: Oropharynx is clear. Eyes: Extraocular Movements: Extraocular movements intact. Pupils: Pupils are equal, round, and reactive to light. Neck: Vascular: No carotid bruit. Cardiovascular: Rate and Rhythm: Normal rate and regular rhythm. Pulses: Normal pulses. Heart sounds: Normal heart sounds. No murmur heard. Pulmonary: Effort: Pulmonary effort is normal. No respiratory distress. Breath sounds: Normal breath sounds. No wheezing, rhonchi or rales. Chest: Chest wall: No tenderness. Abdominal: General: Bowel sounds are normal. There is no distension. Palpations: Abdomen is soft. There is no mass. Tenderness: There is no abdominal tenderness. There is no guarding or rebound. Hernia: No hernia is present. Musculoskeletal: Cervical back: Normal range of motion and neck supple. Bony tenderness present. No rigidity or tenderness. Thoracic back: Tenderness and bony tenderness present. Lumbar back: Tenderness and bony tenderness present. Positive right straight leg raise test and positive left straight leg raise test. Right lower leg: No edema. Left lower leg: No edema. Lymphadenopathy: Cervical: No cervical adenopathy. Skin: General: Skin is warm and dry. Capillary Refill: Capillary refill takes less than 2 seconds. Findings: No rash. Neurological: General: No focal deficit present. Mental Status: She is alert and oriented to person, place, and time. Motor: No weakness. Psychiatric: Mood and Affect: Mood normal. Behavior: Behavior normal. Assessment/Plan Health maintenance reviewed. Wellness labs have been ordered and completed. Reviewed with patient. She is following with [facility] for routine Pap. Mammogram ordered today d/t family hx of breast concerns and she has hx of galactorrhea, that continues to occur intermittently. She reports she has been receiving mammograms routinely. She declines flu shot today. She is due for vision and dental exams, she will get scheduled. X-ray ordered of lumbar spine to further evaluate lower back pain. Referral placed to physical therapy for chronic lower back pain with right-sided sciatica. Discussed possible need for further imaging however we will wait till she completes physical therapy. I will start gabapentin low dosage 100 mg 3 times a day for the burning sensation to bilateral legs in the sharp pain to left side of head. Discussed she can increase his gabapentin to 300 mg three times daily if the 100 mg dosage does not work. I also added low dose of muscle relaxer at bedtime to see if this helps with muscle pain. I also increase amitriptyline to 50 mg at bedtime. This should help with combination headaches, sleep, and generalized pain. I will switch meloxicam to Celebrex and see if this helps prevent GI upset. I want to ensure that she is able to eat before taking her Celebrex and ensure that she is able to drink a full glass of water. Otherwise healthy adult she may follow up annually for wellness or sooner as needed. In 2-3 months for chronic back pain, we will also address right shoulder pain. Emma was seen today for wellness. Diagnoses and all orders for this visit: Wellness examination - Cancel: Mammography screening bilateral with CAD; Future - Mammography screening bilateral with CAD; Future Migraine with aura and without status migrainosus, not intractable Chronic midline low back pain with right-sided sciatica - gabapentin (NEURONTIN) 100 mg capsule; Take 1 capsule (100 mg total) by mouth 3 (three) times a day for 30 days. - X-ray spine lumbar 2 or 3 views; Future - Ambulatory referral to Physical Therapy; Future Nipple discharge - Cancel: Mammography screening bilateral with CAD; Future - Mammography screening bilateral with CAD; Future Encounter for screening mammogram for malignant neoplasm of breast - Mammography screening bilateral with CAD; Future Myalgia - cyclobenzaprine (FLEXERIL) 5 mg tablet; Take 1 tablet (5 mg total) by mouth nightly as needed for muscle spasms. Other orders - amitriptyline (ELAVIL) 50 mg tablet; Take 1 tablet (50 mg total) by mouth nightly. - celecoxib (CeleBREX) 100 mg capsule; Take 1 capsule (100 mg total) by mouth in the morning and 1 capsule (100 mg total) before bedtime. FELI Raymond 07/06/24 [id number] documented in this encounter [facility] 06-17-2024 History of Presen t illness Narrative Subjective Patient ID: Emma Valle is a 33 y.o. female. ZOILA Jerez presents to the office for ER follow up. She went to [facility] ER on 06/05/2024 and then again on 06/13/2024 for pharyngitis. On 06/05/2024 she was diagnosed with strep and was treated with amoxicillin. However she returned on 06/13/2024 as she completed antibiotic and continued with sore throat. She was then treated with azithromycin and prednisone for 5 days. Also, she currently is on Flagyl for BV and yeast infection by [employer]. She reports she completed medications in her throat is beginning to feel a little better today, however she presents as she continues with a lot of sinus pressure and congestion. She reports she actually has been dealing with sinus congestion and pressure on and off for the last 2-3 weeks. However despite being on the amoxicillin and azithromycin she continues with sinusitis. She reports she feels thick drainage go down the back of her throat and she is coughing up thick yellow phlegm. The fatigue is the same as it has been and she denies any fever at this time. She reports worsening headaches the last few weeks as well with this sinusitis. She would like to inquire about letter for emotional support pet. He helps keep anxiety and depression under control along with medications. The following portions of the patient's history were reviewed and updated as appropriate: allergies, current medications, past family history, past medical history, past social history, past surgical history, problem list, and medication reconciliation was completed including current medication and post discharge medication. Review of Systems Constitutional: Positive for fatigue. Negative for chills and fever. HENT: Positive for congestion, rhinorrhea, sinus pressure, sinus pain and sore throat. Negative for ear pain. Respiratory: Positive for cough. Negative for shortness of breath. Neurological: Positive for headaches. Objective Physical Exam Vitals and nursing note reviewed. Constitutional: General: She is not in acute distress. Appearance: Normal appearance. She is well-developed. She is not ill-appearing. HENT: Head: Normocephalic and atraumatic. Right Ear: Tympanic membrane, ear canal and external ear normal. Left Ear: Tympanic membrane, ear canal and external ear normal. Nose: Congestion present. Left Sinus: Maxillary sinus tenderness and frontal sinus tenderness present. Mouth/Throat: Mouth: Mucous membranes are moist. Pharynx: Oropharynx is clear. Posterior oropharyngeal erythema present. No oropharyngeal exudate. Eyes: Extraocular Movements: Extraocular movements intact. Pupils: Pupils are equal, round, and reactive to light. Neck: Vascular: No carotid bruit. Cardiovascular: Rate and Rhythm: Normal rate and regular rhythm. Pulses: Normal pulses. Heart sounds: Normal heart sounds. No murmur heard. Pulmonary: Effort: Pulmonary effort is normal. No respiratory distress. Breath sounds: Normal breath sounds. No wheezing, rhonchi or rales. Chest: Chest wall: No tenderness. Musculoskeletal: Cervical back: Normal range of motion and neck supple. No rigidity or tenderness. Lymphadenopathy: Cervical: Cervical adenopathy present. Right cervical: Superficial cervical adenopathy present. Left cervical: Superficial cervical adenopathy present. Skin: General: Skin is warm and dry. Capillary Refill: Capillary refill takes less than 2 seconds. Findings: No rash. Neurological: General: No focal deficit present. Mental Status: She is alert and oriented to person, place, and time. Motor: No weakness. Psychiatric: Mood and Affect: Mood normal. Behavior: Behavior normal. Assessment/Plan ER note reviewed. I will treat acute sinusitis with Augmentin. She can also trial [id number] medications with Sudafed, and nasal spray. Discussed side effects. Encouraged to drink more fluids. Discussed if symptoms persist and I would like her to return for further evaluation for chronic sinusitis and for workup for migraines. Emotional support animal letter provided today, as I feel her Pet would be beneficial for her anxiety and depression. She will call the office if symptoms persist. Emma was seen today for follow-up. Diagnoses and all orders for this visit: Acute sinusitis, recurrence not specified, unspecified location Anxiety and depression Other orders - fluticasone propionate (FLONASE) 50 mcg/actuation nasal spray; Administer 1 spray into each nostril in the morning. - pseudoephedrine (SUDAFED) 30 mg tablet; Take 1 tablet (30 mg total) by mouth every 6 (six) hours as needed for congestion. - amoxicillin-pot clavulanate (AUGMENTIN) 875-125 mg per tablet; Take 1 tablet by mouth in the morning and 1 tablet before bedtime. Do all this for 10 days. FELI Raymond 06/17/24 135 documented in this encounter [facility] 06-09-2024 History of Presen t illness Narrative Reason for Appointment: Patient ID: Emma Valle is a 33 y.o. female who presents for Pelvic Pain (Pt present for left pelvic pain) Patient presents today for Acute Visit. MEDICATIONS Current Outpatient Medications Medication Instructions albuterol HFA 90 mcg/act inhaler INHALE 2 PUFFS BY MOUTH INTO THE LUNGS EVERY 6 HOURS NEEDED FOR WHEEZING cyclobenzaprine (FLEXERIL) 10 mg, Oral, 2 times daily PRN hydrOXYzine HCl (ATARAX) 25 mg, Oral, 3 times daily PRN hydrOXYzine pamoate (VISTARIL) 25 mg, 3 times daily PRN sertraline (ZOLOFT) 50 mg, Oral, Daily RT traZODone (DESYREL) 50 mg, Oral, Nightly ALLERGIES Allergies Allergen Reactions Penicillin G Other Yeast infection PROBLEMS Active Ambulatory Problems Diagnosis Date Noted No Active Ambulatory Problems Resolved Ambulatory Problems Diagnosis Date Noted No Resolved Ambulatory Problems No Additional Past Medical History HISTORY PAST MEDICAL HISTORY SOCIAL HISTORY No past medical history on file. Social History Tobacco Use Smoking status: Every Day Current packs/day: 1.00 Types: Cigarettes Smokeless tobacco: Not on file Substance Use Topics Alcohol use: Never Comment: Caffeine intake: 2-3 cups per day Drug use: Never FAMILY HISTORY Family History Problem Relation Name Age of Onset Diabetes Father Hypertension Father Heart disease Paternal Grandmother Stroke Paternal Grandmother Heart disease Paternal Grandfather Cancer Paternal Grandfather SURGICAL HISTORY Past Surgical History: Procedure Laterality Date HYSTERECTOMY 2017 OTHER SURGICAL HISTORY Ablation PAP SMEAR 12/29/2019 negative PELVIC LAPAROSCOPY PELVIC LAPAROSCOPY 12/28/2022 dx with lysis of omental adhesions to the anterior wall TUBAL LIGATION REVIEW OF SYSTEMS Review of Systems: Review of Systems Constitutional: Negative. HENT: Negative. Eyes: Negative. Respiratory: Negative. Cardiovascular: Negative. Gastrointestinal: Negative. Genitourinary: Negative. Musculoskeletal: Negative. Skin: Negative. Neurological: Negative. All other systems reviewed and are negative. Hematological: Negative. Endocrine: Negative. Allergic/Immunologic: Negative. OBJECTIVE Objective: Physical Exam Constitutional: Appearance: Normal appearance. She is well-developed. Genitourinary: Vulva normal. Vaginal cuff intact. Cervix is absent. Uterus is absent. Cardiovascular: Rate and Rhythm: Normal rate and regular rhythm. Abdominal: General: Bowel sounds are normal. There is no distension. Palpations: Abdomen is soft. Tenderness: There is no abdominal tenderness. There is no guarding or rebound. Musculoskeletal: General: No swelling. Normal range of motion. Right lower leg: No edema. Left lower leg: No edema. Neurological: Mental Status: She is alert and oriented to person, place, and time. Skin: General: Skin is warm and dry. Psychiatric: Mood and Affect: Mood normal. Behavior: Behavior normal. Vitals and nursing note reviewed. Exam conducted with a warehouser present. Vitals: Estimated body mass index is 34.49 kg/m as calculated from the following: Height as of 01/10/23: 4' 10 . Weight as of this encounter: 165 lb. BP: 122/72 No LMP recorded. Patient has had a hysterectomy. ASSESSMENT & PLAN ICD-10-CM 1. Pelvic pain in female R10.2 POCT urinalysis dipstick manually resulted SURESWAB(R) ADVANCED VAGINITIS PLUS, TMA Neisseria gonorrhea DNA probe, direct CHLAMYDIA TRACHOMATIS (GENITO/STI) US Pelvis w/ TV SURESWAB(R) ADVANCED VAGINITIS PLUS, TMA CANCELED: POCT , urine manually resulted 2. STI (sexually transmitted infection) A64 Documented by Torri Encinas LPN on behalf of: Nadiya Cardenas DO documented in this encounter [facility] 06-01-2024 Miscellaneous Notes Formattin g of this note might be different from the original. Patient called stating she is having some issues with her dreams and PTSD and thinks it may be due to her medication she just wanted to let PCP know and she is going to call back tomorrow for a Same day appointment. documented in this encounter [facility] 06-01-2024 Telephone encount er Note Patient called stating she is having some issues with her dreams and PTSD and thinks it may be due to her medication she just wanted to let PCP know and she is going to call back tomorrow for a Same day appointment. [facility] 02-03-2024 History of Presen t illness Narrative Reason for Appointment: Patient ID: Emma Valle is a 33 y.o. female who presents for Well Women Visit Patient presents today for Annual Exam. MEDICATIONS Current Outpatient Medications Medication Instructions albuterol HFA 90 mcg/act inhaler INHALE 2 PUFFS BY MOUTH INTO THE LUNGS EVERY 6 HOURS NEEDED FOR WHEEZING cyclobenzaprine (FLEXERIL) 10 mg, Oral, 2 times daily PRN hydrOXYzine HCl (ATARAX) 25 mg, Oral, 3 times daily PRN hydrOXYzine pamoate (VISTARIL) 25 mg, 3 times daily PRN sertraline (ZOLOFT) 50 mg, Oral, Daily RT traZODone (DESYREL) 50 mg, Oral, Nightly ALLERGIES Allergies Allergen Reactions Penicillin G Other Yeast infection PROBLEMS Active Ambulatory Problems Diagnosis Date Noted No Active Ambulatory Problems Resolved Ambulatory Problems Diagnosis Date Noted No Resolved Ambulatory Problems No Additional Past Medical History HISTORY PAST MEDICAL HISTORY SOCIAL HISTORY History reviewed. No pertinent past medical history. Social History Tobacco Use Smoking status: Every Day Current packs/day: 1.00 Types: Cigarettes Smokeless tobacco: Not on file Substance Use Topics Alcohol use: Never Comment: Caffeine intake: 2-3 cups per day Drug use: Never FAMILY HISTORY Family History Problem Relation Name Age of Onset Diabetes Father Hypertension Father Heart disease Paternal Grandmother Stroke Paternal Grandmother Heart disease Paternal Grandfather Cancer Paternal Grandfather SURGICAL HISTORY Past Surgical History: Procedure Laterality Date HYSTERECTOMY OTHER SURGICAL HISTORY Ablation PAP SMEAR 12/29/2019 negative PELVIC LAPAROSCOPY PELVIC LAPAROSCOPY 12/28/2022 dx with lysis of omental adhesions to the anterior wall TUBAL LIGATION REVIEW OF SYSTEMS Review of Systems: Review of Systems Constitutional: Negative. HENT: Negative. Eyes: Negative. Respiratory: Negative. Cardiovascular: Negative. Gastrointestinal: Negative. Genitourinary: Negative. Musculoskeletal: Negative. Skin: Negative. Neurological: Negative. All other systems reviewed and are negative. Hematological: Negative. Endocrine: Negative. Allergic/Immunologic: Negative. OBJECTIVE Objective: Physical Exam Constitutional: Appearance: Normal appearance. She is well-developed. Genitourinary: Vulva normal. Right Adnexa: not tender and no mass present. Left Adnexa: not tender and no mass present. Cervix is absent. Uterus is absent. Breasts: Breasts are soft. Right: Normal. Left: Normal. HENT: Head: Normocephalic. Nose: Nose normal. Mouth/Throat: Mouth: Mucous membranes are moist. Cardiovascular: Rate and Rhythm: Normal rate and regular rhythm. Pulmonary: Effort: Pulmonary effort is normal. Breath sounds: Normal breath sounds. Abdominal: General: Bowel sounds are normal. There is no distension. Palpations: Abdomen is soft. Tenderness: There is no abdominal tenderness. There is no guarding or rebound. Musculoskeletal: General: No swelling. Normal range of motion. Cervical back: Normal range of motion. Right lower leg: No edema. Left lower leg: No edema. Neurological: General: No focal deficit present. Mental Status: She is alert and oriented to person, place, and time. Skin: General: Skin is warm and dry. Psychiatric: Mood and Affect: Mood normal. Behavior: Behavior normal. Vitals and nursing note reviewed. Exam conducted with a warehouser present. Vitals: Estimated body mass index is 33.65 kg/m as calculated from the following: Height as of 01/10/23: 4' 10 . Weight as of this encounter: 161 lb. BP: 118/76 No LMP recorded. Patient has had a hysterectomy. ASSESSMENT & PLAN ICD-10-CM 1. Well woman exam with routine gynecological exam Z01.419 Annual Exam: Patient presents today for an annual exam. Patient states she is doing well and has no complaints. Pap was obtained without difficulty. No orders of the defined types were placed in this encounter. Follow Up: Patient is to return in one year for annual unless needed otherwise. Documented by Mary Mondragon LPN on behalf of: ROSENDO Piper documented in this encounter [facility] Healthcare Evaluation note Diagnosis Well woman exam with routine gynecological exam Routine gynecological examination documented in this encounter [facility]* Diagnosis Pelvic pain in female Unspecified symptom associated with female genital organs STI (sexually transmitted infection) Unspecified venereal disease PCOS (polycystic ovarian syndrome) Polycystic ovaries Hormone disorder Unspecified endocrine disorder documented in this encounter [facility]* Diagnosis Acute sinusitis, recurrence not specified, unspecified location- Primary Anxiety and depression [facility]* Diagnosis Wellness examination- Primary Migraine with aura and without status migrainosus, not intractable Chronic midline low back pain with right-sided sciatica Nipple discharge Other sign and symptom in breast Encounter for screening mammogram for malignant neoplasm of breast Myalgia Unspecified myalgia and myositis [facility] Diagnosis Nipple discharge- Primary Other sign and symptom in breast Chronic midline low back pain with right-sided sciatica documented in this encounter [facility]* Diagnosis Chronic midline low back pain with right-sided sciatica documented in this encounter [facility]* Diagnosis Pelvic pain in female Unspecified symptom associated with female genital organs PCOS (polycystic ovarian syndrome) Polycystic ovaries documented [facility] encounter [facility]* Diagnosis Pelvic pain PCOS (polycystic ovarian syndrome) Polycystic ovaries documented in this encounter [facility]* Diagnosis Muscle weakness- Primary Muscle weakness (generalized) Myalgia Unspecified myalgia and myositis Brain fog Chronic right shoulder pain Pain in joint, shoulder region Chronic midline low back pain with right-sided sciatica History of COVID-19 Bronchitis Bronchitis, not specified as acute or chronic Anxiety Anxiety state, unspecified Chronic right shoulder pain Pain in joint, shoulder region Chronic midline low back pain with right-sided sciatica [facility]* Diagnosis Encounter to discuss test results Other specified counseling Hormone disorder Unspecified endocrine disorder Dyspareunia in female documented in this encounter [facility]* Diagnosis History of COVID-19 Bronchitis Bronchitis, not specified as acute or chronic [facility] filedocument[facility] in [facility] filedocumented in [facility] filedocumented in this [facility] filedocumented in this [facility] filedocumented in this [facility] filedocumented in [facility] filedocumented in [facility] filedocumented in this [facility] Summary Purpose Family History No Family History [...] content) DATE CREATED AUTHOR 01/01/2020 [facility] DATE CREATED AUTHOR AUTHOR'S ORGANIZ ATION 02/13/2024 [facility] DATE CREATED AUTHOR AUTHOR'S ORGANIZ ATION 05/11/2024 [facility] DATE CREATED AUTHOR AUTHOR'S ORGANIZ ATION 10/10/2024 [facility] DATE CREATED AUTHOR AUTHOR'S ORGANIZ ATION 11/01/[address] [facility] EPIC DATE CREATED AUTHOR AUTHOR'S ORGANIZ ATION 11/03/2024 [facility] Care Teams (unrecognized sec tion and content) Paper Hanger Relationship Specialty Start Date End Date Elizabeth Boston PA [facility] [place] [address] [facility] 07/22/23 Paper Hanger Relationship Specialty Start Date End Date Elizabeth Boston PA [facility] [place] [address] PCP - [facility] 07/22/23 Paper Hanger Relationship Specialty Start Date End Date Jm Reddy APRN-CAR DELIVERER [address] [place] [address], [place] [address] PCP - General Nurse Practitioner 05/08/24 Paper Hanger Relationship Specialty Start Date End Date Elizabeth Boston PA [facility] [place] [address] [facility] 07/22/2303/21 Nadiya Cardenas, [facility] [place] [address] PCP [facility] 04/22/24 Paper Hanger Relationship Specialty Start Date End Date Elizabeth Boston PA [facility] [place] [address] PCP [facility] 07/22/2303/21 Nadiya Cardenas, [place] [facility] [place] [address] PCP [facility] 04/22/24 Paper Hanger Relationship Specialty Start Date End Date Jm Reddy APRN-CAR DELIVERER [address] [place] [address], [place] [address] PCP - General Nurse Practitioner 05/08/24 Paper Hanger Relationship Specialty Start Date End Date Jm Reddy TRAVERSE [employer]OD ASSEMBLER-CAR DELIVERER [address] [place] [address], [place] [address] PCP - General Nurse Practitioner 05/08/24 Paper Hanger Relationship Specialty Start Date End Date [facility] [address] [place] [address], [facility] Kath[place] [address] PCP - General Nurse Practitioner 05/08/24 Paper Hanger Relationship Specialty Start Date End Date [facility] [address] [place] [address], [place] [phone] PCP - General Nurse Practitioner 05/08/24 Paper Hanger Relationship Specialty Start Date End Date [facility] [address] [place] [address], [place] [phone] PCP - General Nurse Practitioner 05/08/24 Paper Hanger Relationship Specialty Start Date End Date [facility] [address] [place] [address], [place] [phone] PCP - General Nurse Practitioner 05/08/24 Paper Hanger Relationship Specialty Start Date End Date Elizabeth Boston PA [facility] [place] [address] PCP - [facility] 07/22/2303/21 Nadiya Cardenas DO [facility] [place] [address] PCP - [facility] 04/22/24 Paper Hanger Relationship Specialty Start Date End Date Elizabeth Boston PA [facility] [place] [address] [facility] 07/22/2303/21 Nadiya Cardenas, DO [facility] [place] [address] PCP [facility] 04/22/24 Paper Hanger Relationship Specialty Start Date End Date Elizabeth Boston PA [facility] [place] [address] [facility] 07/22/2303/21 Nadiya Cardenas, [facility] [place] [address] PCP [facility] 04/22/24 Paper Hanger Relationship Specialty Start Date End Date Elizabeth Boston PA [address] [place], [place] [address] [address] [facility] 07/22/2303/21 Nadiya Cardenas, DO [address] [place], [place] [address] [address] PCP [facility] 04/22/24 Paper Hanger Relationship Specialty Start Date End Date Jm Reddy APRN-CAR DELIVERER [address] [place] [address], [place] [address] PCP - General Nurse Practitioner 05/08/24 Paper Hanger Relationship Specialty Start Date End Date Elizabeth Boston PA [address] [place], [place] [address] [address] PCP [facility] 07/22/2303/21 Nadiya Cardenas, DO [address] [place] [address] PCP [facility] 04/22/24 Paper Hanger Relationship Specialty Start Date End Date Elizabeth Boston PA [address] [place] [address] [facility] 07/22/2303/21 Nadiya Cardenas DO [address] [place] [address] [facility] 04/22/24 Paper Hanger Relationship Specialty Start Date End Date Jm Reddy APRN-CAR DELIVERER [address] [place] [address], [facility] [place] [address] PCP - General Nurse Practitioner 05/08/24 Paper Hanger Relationship Specialty Start Date End Date Elizabeth Boston PA [facility] [place] [address] [facility] 07/22/2303/21 Reason for Visit (unrecogniz ed section and content) Reason Comments Well Women Visit Reason Comments Pelvic Pain Pt present for left pelvic pain Reason Comments Follow-up ER 06/13/2024 Sore t hroat Reason Onset Date Comments Med Refill 06/30/2024 Reason Comments wellness Reason Comments Med Refill Reason Onset Date Comments Results 08/04/2024 Reason Onset Date Comments Results 08/07/2024 Reason Comments Pelvic Pain Polycystic Ovary Syndrome Reason Onset Date Comments Med Refill 09/07/2024 Reason Comments Pelvic Pain Reason Comments Follow-up Back pain Reason Comments Results Reason Onset Date Comments Med Refill 12/21/2024 FOR RECORDS PERTAINING TO PATIENTS WHO ARE [...] BE BASED ON THE PRIMARY CLINICAL RECORDS. [facility] [employer] [facility]. provides no warranty or guarantee of the accuracy or completeness of information in this document.
[2024-12-31 14:09] LABS: Age Gdln ACOG Testing Note (.); IGP, Aptima HPV, rfx 16/18,45 Note (.)
== END 2024-12-28 21:16 | disposition home or self-care (01) ==
LOC: LAB 21:15
PROVIDERS: Visit Provider Obstetrics & Gynecology
DX: R10.2 Pelvic and perineal pain (principal); Z01.419 Encounter for gynecological examination (general) (routine) without abnormal findings
CPT/HCPCS: 87624; 88175